=== PATIENT | female | born 1935 | race African-American/Black ===

== ENCOUNTER 2020-01-03 18:21 | Inpatient (IN) | payer MEDICARE, MEDICAID ==
[~2020-01-03] VITALS: Ht 154.9 cm; Wt 62.6 kg
[~2020-01-03 18:21] MED LIST: BENZTROPINE MESY1 MG NG; BENZTROPINE MESY1 MG PO; CULTURELLE1 EACH ORAL; DEPAKENE L250 MG/5 M ORAL; DEPAKENE250 MG ORAL; FLAGYL500 MG ORAL; FLUCONAZOLE100 MG ORAL; HALDOL5 MG ORAL; HALOPERIDOL1 MG ORAL; HYDROCODON-ACE1 EA16 ORAL
[2020-01-03 18:30] VITALS: BP 131/71
[2020-01-03] MEDS ORDERED: Haloperidol 5mg/ml Inj IM ONE (18:45)
[2020-01-03] MEDS ORDERED: ZYPREXA2.5 MG ORAL (18:58)
[2020-01-03] MEDS ORDERED: DULCOLAX10 MG RC (18:58)
[2020-01-03] MEDS ORDERED: COLACE100 MG ORAL (18:58)
[2020-01-03] MEDS ORDERED: REGLAN10 MG ORAL (18:58)
[2020-01-03] MEDS ORDERED: OMEPRAZOLE20 M3 ORAL (18:58)
[2020-01-03] MEDS ORDERED: FUROSEMIDE40 MG ORAL (18:58)
[2020-01-03] MEDS ORDERED: LOPERAMIDE2 M1 PO (18:58)
[2020-01-03] MEDS ORDERED: EPOGEN20000 UNI1 SUBQ (18:58)
[2020-01-03] MEDS ORDERED: TYLENOL325 M1 PO (18:58)
[2020-01-03 19:05] LABS: BASOPHILS % (AUTO) 1.2 % (0.0-2.0); HEMATOCRIT 34.6 % (37.0-47.0); HEMOGLOBIN 10.1 G/DL (12.0-16.0); LYMPHOCYTES % (AUTO) 11.8 % (20.0-45.0); MEAN CORPUSCULAR VOLUME 95 FL (80-99); MONOCYTES % (AUTO) 8.2 % (1.0-10.0); NEUTROPHILS % (AUTO) 77.8 % (45.0-75.0); PLATELET COUNT 177 K/UL (150-450); RED BLOOD COUNT 3.64 M/UL (4.20-5.40); RED CELL DISTRIBUTION WIDTH 16.2 % (11.6-14.8); WHITE BLOOD COUNT 9.1 K/UL (4.8-10.8)
[2020-01-03 19:10] VITALS: BP 140/81
[2020-01-03 19:15] LABS: ANION GAP 16 mmol/L (5-15); BLOOD UREA NITROGEN 72 mg/dL (7-18); CALCIUM 10.1 MG/DL (8.5-10.1); CARBON DIOXIDE 21 MMOL/L (21-32); CHLORIDE 109 MMOL/L (98-107); CREATININE 5.9 MG/DL (0.55-1.30); POTASSIUM 4.7 MMOL/L (3.5-5.1); SODIUM 146 MMOL/L (136-145)
[2020-01-03 19:19] LABS: ALANINE AMINOTRANSFERASE 10 U/L (12-78); ALBUMIN 4.4 G/DL (3.4-5.0); ALKALINE PHOSPHATASE 110 U/L (46-116); ASPARTATE AMINO TRANSFERASE 20 U/L (15-37); BILIRUBIN,TOTAL 0.4 MG/DL (0.2-1.0)
[2020-01-03 19:43] LABS: BILIRUBIN, URINE NEGATIVE (NEGATIVE); COLOR,URINE PALE YELLOW; GLUCOSE, URINE (UA) NEGATIVE (NEGATIVE); KETONES,URINE 1+ (NEGATIVE); LEUKOCYTE ESTERASE ,URINE 3+ (NEGATIVE); NITRITE,URINE NEGATIVE (NEGATIVE); PH,URINE 8 (4.5-8.0); PROTEIN,URINE 3+ (NEGATIVE); UROBILINOGEN,URINE NORMAL MG/DL (0.0-1.0)
[2020-01-03 20:00] LABS: APPEARANCE,URINE CLOUDY
[2020-01-03 20:30] VITALS: BP 135/85
--- NOTE | 2020-01-03 21:06 | Emergency Room Report ---
History of Present Illness General Chief Complaint: Behavioral Complaint Source: Medical Record, EMS Present Illness HPI 84-year-old female presents the ED for evaluation. [facility] History of psych. Patient has been more agitated and combative than usual. Refusing to take her medications. On arrival patient screaming and yelling. Cursing. No reported fevers or chills. No signs of distress. No other aggravating relieving factors. No other associated symptoms Allergies: Coded Allergies: No Known Allergies (Unverified , 05/11/15) COVID-19 Screening Contact w/high risk pt: No Experienced COVID-19 symptoms?: No COVID-19 Testing performed INSURANCE AND FINANCIAL SERVICES AGENT: No Patient History Past Medical History: psych hx, renal disease, other - MS Pertinent Family History: none Social History: Denies: smoking, alcohol use, drug use Now: No Immunizations: UTD Reviewed Nursing Documentation: PMH: Agreed; PSxH: Agreed Nursing Documentation-PMH Past Medical History: No History, Except For Hx Cardiac Problems: No - OSTEOPOROSIS Hx Gastrointestinal Problems: Yes - KIDNEY FAILURE Hx Neurological Problems: Yes - MS weakness Hx Seizures: Yes Review of Systems All Other Systems: negative except mentioned in HPI Physical Exam Vital Signs Date Time Temp Pulse Resp B/P (MAP) Pulse Ox O2 Delivery O2 Flow Rate FiO2 01/03/20 18:23 111 18 133/63 (86) 01/03/20 18:30 97.0 98 Room Air Sp02 EP Interpretation: reviewed, normal General Appearance: alert, GCS 15, non-toxic, other - agitated Head: normocephalic, atraumatic Eyes: bilateral eye normal inspection, bilateral eye PERRL ENT: hearing grossly normal, normal pharynx, no angioedema, normal voice Neck: full range of motion, supple/symm/no masses Respiratory: chest non-tender, lungs clear, normal breath sounds, speaking full sentences Cardiovascular #1: regular rate, rhythm, no edema Cardiovascular #2: 2+ carotid (R), 2+ carotid (L), 2+ radial (R), 2+ radial (L) , 2+ dorsalis pedis (R), 2+ dorsalis pedis (L) Gastrointestinal: normal bowel sounds, non tender, soft, non-distended, no guarding, no rebound Rectal: deferred Genitourinary: normal inspection, no CVA tenderness Musculoskeletal: back normal, normal range of motion, gait/station normal, non- tender Neurologic: alert, motor strength/tone normal, oriented x3, sensory intact, responsive, speech normal Psychiatric: anxious, other - agitated Reflexes: 3+ bicep (R), 3+ bicep (L), 3+ tricep (R), 3+ tricep (L), 3+ knee (R) , 3+ knee (L) Skin: other - see nursing notes Lymphatic: no adenopathy Medical Decision Making Diagnostic Impression: Primary Impression: Acute encephalopathy Additional Impressions: CKD (chronic kidney disease) Qualified Codes: N18.9 - Chronic kidney disease, unspecified Malnutrition Qualified Codes: E46 - Unspecified protein-calorie malnutrition UTI (urinary tract infection) ER Course Hospital Course 84-year-old female presents with agitation and combative behavior. Refusing to take her psych meds Differential diagnoses include: UTI, sepsis, dehydration, psychosis, failure to thrive Clinical course Patient placed on stretcher. On director cardiac with stable vitals. After initial history and physical, I ordered labs, IV fluids, UA She required Haldol for agitation Labs -no leukocytosis, hemoglobin/hematocrit stable, sodium 146, BUN/creatinine 72/5.9, UTI given abx. given IVFs. Dr Pearl will consult. Case discussed with Dr Martins and they agreed to admit patient to their service for further care and support I feel this is a highly complex case requiring extensive working including EKG/ Rhythm strip, Xray/CT/US, Blood/urine lab work, repeat exams while in ED, and administration of strong opiates/narcotics for pain control, admission to hospital or close patient follow up. Diagnosis - acute encephalopathy, CKD, malnutritino, UTI Patient admitted to telemetry in serious condition Laboratory Tests Test 01/03/20 18:20 01/03/20 18:40 Urine Color Pale yellow Urine Appearance Cloudy Urine pH 8 (4.5-8.0) Urine Specific [place] 1.010 (1.005-1.035) Urine Protein 3+ (NEGATIVE) H Urine Glucose (UA) Negative (NEGATIVE) Urine Ketones 1+ (NEGATIVE) H Urine Blood 3+ (NEGATIVE) H Urine Nitrite Negative (NEGATIVE) Urine Bilirubin Negative (NEGATIVE) Urine Urobilinogen Normal MG/DL (0.0-1.0) Urine Leukocyte Esterase 3+ (NEGATIVE) H Urine RBC Tntc /HPF (0 - 2) H Urine WBC 20-30 /HPF (0 - 2) H Urine Squamous Epithelial Cells Occasional /LPF Urine Amorphous Sediment Moderate /LPF (NONE) H Urine Bacteria Many /HPF (NONE) H Urine Opiates Screen Negative (NEGATIVE) Urine Barbiturates Screen Negative (NEGATIVE) Phencyclidine (PCP) Screen Negative (NEGATIVE) Urine Amphetamines Screen Negative (NEGATIVE) Urine Benzodiazepines Screen Negative (NEGATIVE) Urine Cocaine Screen Negative (NEGATIVE) Urine Marijuana (THC) Screen Negative (NEGATIVE) White Blood Count 9.1 K/UL (4.8-10.8) Red Blood Count 3.64 M/UL (4.20-5.40) L Hemoglobin 10.1 G/DL (12.0-16.0) L Hematocrit 34.6 % (37.0-47.0) L Mean Corpuscular Volume 95 FL (80-99) Mean Corpuscular Hemoglobin 27.8 PG (27.0-31.0) Mean Corpuscular Hemoglobin Concent 29.2 G/DL (32.0-36.0) L Red Cell Distribution Width 16.2 % (11.6-14.8) H Platelet Count 177 K/UL (150-450) Mean Platelet Volume 8.0 FL (6.5-10.1) Neutrophils (%) (Auto) 77.8 % (45.0-75.0) H Lymphocytes (%) (Auto) 11.8 % (20.0-45.0) L Monocytes (%) (Auto) 8.2 % (1.0-10.0) Eosinophils (%) (Auto) 1.0 % (0.0-3.0) Basophils (%) (Auto) 1.2 % (0.0-2.0) Sodium Level 146 MMOL/L (136-145) H Potassium Level 4.7 MMOL/L (3.5-5.1) Chloride Level 109 MMOL/L (98-107) H Carbon Dioxide Level 21 MMOL/L (21-32) Anion Gap 16 mmol/L (5-15) H Blood Urea Nitrogen 72 mg/dL (7-18) H Creatinine 5.9 MG/DL (0.55-1.30) H Estimat Glomerular Filtration Rate 8.2 mL/min (>60) Glucose Level 64 MG/DL (74-106) L Calcium Level 10.1 MG/DL (8.5-10.1) Total Bilirubin 0.4 MG/DL (0.2-1.0) Aspartate Amino Transf (AST/SGOT) 20 U/L (15-37) Alanine Aminotransferase (ALT/SGPT) 10 U/L (12-78) L Alkaline Phosphatase 110 U/L (46-116) Total Protein 8.8 G/DL (6.4-8.2) H Albumin 4.4 G/DL (3.4-5.0) Globulin 4.4 g/dL Albumin/Globulin Ratio 1.0 (1.0-2.7) Salicylates Level 1.4 ug/mL (2.8-20) L Acetaminophen Level < 2 MCG/ML (10-30) L Serum Alcohol < 3 mg/dL Last Vital Signs Date Time Temp Pulse Resp B/P (MAP) Pulse Ox O2 Delivery O2 Flow Rate FiO2 01/03/20 19:10 97.2 93 18 140/81 97 Room Air Status: improved Disposition: ADMITTED INPATIENT Condition: Critical Referrals: NON PHYSICIAN (PCP) Florentino France MD Jan 03, 2020 21:06
[2020-01-03] MEDS ORDERED: cefTRIAXone 1 GM in D5W 55 ML IVPB ONE (21:15)
[2020-01-04] VITALS: BP 111/31
[2020-01-04 04:00] VITALS: BP 133/69
[2020-01-04 07:35] LABS: BASOPHILS % (AUTO) 0.5 % (0.0-2.0); EOSINOPHILS % (AUTO) 0.9 % (0.0-3.0); HEMATOCRIT 32.3 % (37.0-47.0); HEMOGLOBIN 9.2 G/DL (12.0-16.0); MEAN CORPUSCULAR VOLUME 96 FL (80-99); MONOCYTES % (AUTO) 7.9 % (1.0-10.0); NEUTROPHILS % (AUTO) 75.6 % (45.0-75.0); PLATELET COUNT 171 K/UL (150-450); RED BLOOD COUNT 3.38 M/UL (4.20-5.40); RED CELL DISTRIBUTION WIDTH 15.9 % (11.6-14.8); WHITE BLOOD COUNT 9.6 K/UL (4.8-10.8)
[2020-01-04 07:55] LABS: ANION GAP 15 mmol/L (5-15); BLOOD UREA NITROGEN 72 mg/dL (7-18); CALCIUM 9.8 MG/DL (8.5-10.1); CARBON DIOXIDE 21 MMOL/L (21-32); CHLORIDE 112 MMOL/L (98-107); CREATININE 5.8 MG/DL (0.55-1.30); POTASSIUM 4.6 MMOL/L (3.5-5.1); SODIUM 148 MMOL/L (136-145)
[2020-01-04] MEDS: Docusate 100mg cap ORAL SCH (09:00)
[2020-01-04] MEDS: Benztropine 1mg tab ORAL SCH ×2 (09:00→17:30)
[2020-01-04] MEDS ORDERED: Valproic Acid 250mg/5ml Liquid ORAL SCH (09:00)
[2020-01-04] MEDS ORDERED: Benztropine 1mg tab NG SCH (09:00)
[2020-01-04] MEDS: HYDROcodone/Acetamin 7.5/325 tab ORAL SCH ×2 (09:00→17:31)
[2020-01-04] MEDS: Lactobacillus-GG tablet ORAL SCH ×3 (09:00→17:30)
[2020-01-04] MEDS ORDERED: Furosemide 40mg tab ORAL SCH (09:00)
[2020-01-04] MEDS: Enoxaparin 30mg Inj SUBQ SCH (10:00)
[2020-01-04] MEDS: D5 1/2NS 1,000 ML IV SCH (10:41)
--- NOTE | 2020-01-04 11:20 | History & Physical ---
History of Present Illness General Reason for Hospitalization: Behavioral Complaint Present Illness Allergies: Coded Allergies: No Known Allergies (Unverified , 05/11/15) COVID-19 Screening Contact w/high risk pt: No Experienced COVID-19 symptoms?: No Medication History Scheduled Acetaminophen (Tylenol), 500 MG PO PRN, (Reported) Benztropine Mesylate* (Benztropine Mesylate*), 1 MG PO TWICE A DAY, (Reported) Benztropine Mesylate* (Benztropine Mesylate*), 1 MG NG TWICE A DAY Docusate Sodium* (Colace*), 100 MG ORAL DAILY, (Reported) Epoetin Omid (Epogen), 6,000 UNIT SUBQ THREE TIMES A WEEK, (Reported) Fluconazole (Fluconazole), 100 MG ORAL DAILY Furosemide* (Lasix*), 40 MG ORAL DAILY, (Reported) Haloperidol (Haloperidol), 5 MG ORAL QHS Haloperidol* (Haldol*), 5 MG ORAL TWICE A DAY, (Reported) Hydrocodone/Acetaminophen 7.5-325* (Hydrocodon-Acetaminoph 7.5-325*), 1 TAB ORAL TWICE A DAY, (Reported) Lactobacillus Rhamnosus Gg* (Culturelle*), 1 TAB ORAL THREE TIMES A DAY Loperamide Hcl (Loperamide), 2 MG PO Q4HR, (Reported) Metoclopramide Hcl* (Reglan*), 10 MG ORAL BEDTIME, (Reported) Metronidazole* (Flagyl*), 500 MG ORAL EVERY 8 HOURS Olanzapine* (Zyprexa*), 2.5 MG ORAL BEDTIME, (Reported) Omeprazole (Omeprazole), 20 MG ORAL DAILY, (Reported) Valproic Acid (Depakene), 250 MG ORAL TWICE A DAY, (Reported) Valproic Acid (Valproic Acid), 250 MG ORAL TWICE A DAY Miscellaneous Medications Bisacodyl (Dulcolax), 10 MG RC, (Reported) Patient History Healthcare decision maker Resuscitation status Advanced Directive on File Review of Systems Review of Symptoms General ROS: no weight loss or fever Psychological ROS: no depression or mood changes, no memory loss Ophthalmic ROS: no visual changes or eye irritation ENT ROS: no nasal congestion, hearing loss, dizziness Allergy and Immunology ROS: no allergic symptoms or urticaria Hematological and Lymphatic ROS: no swollen glands, unusual bleeding or bruising Endocrine ROS: no polyuria, polydipsia, weight changes, temperature intolerance Respiratory ROS: no cough, shortness of breath, or wheezing Cardiovascular ROS: no chest pain or dyspnea on exertion Gastrointestinal ROS: denies abdominal pain, bright red blood in stool. Musculoskeletal ROS: no myalgias or arthralgias Neurological ROS: no TIA or stroke symptoms Dermatological ROS: no new or changing skin lesions, rashes or pruritis Physical Exam Physical Exam General appearance: alert, cooperative, no distress, appears stated age Head: Normocephalic, without obvious abnormality, atraumatic Eyes: conjunctivae/corneas clear. PERRL, EOM's intact. Fundi benign Throat: Lips, mucosa, and tongue normal. Teeth and gums normal Neck: supple, symmetrical, trachea midline, no adenopathy, thyroid: not enlarged, symmetric, no tenderness/mass/nodules, no carotid bruit and no JVD Lungs: clear to auscultation bilaterally Heart: regular rate and rhythm, S1, S2 normal, no murmur, click, rub or gallop Abdomen: soft, non-tender. Bowel sounds normal. No masses, no organomegaly Extremities: extremities normal, atraumatic, no cyanosis or edema Pulses: 2+ and symmetric Skin: Skin color, texture, turgor normal. No rashes or lesions Neurologic: Grossly normal Last 24 Hour Vital Signs Date Time Temp Pulse Resp B/P (MAP) Pulse Ox O2 Delivery O2 Flow Rate FiO2 01/04/20 07:29 84 01/04/20 04:00 96 01/04/20 04:00 97.9 96 20 133/69 (90) 95 01/04/20 00:00 49 01/04/20 00:00 97.9 49 15 111/31 (57) 99 01/03/20 23:27 Room Air 01/03/20 21:47 97.0 77 20 131/78 97 Room Air 01/03/20 20:30 97.2 88 16 135/85 96 Room Air 01/03/20 19:10 97.2 93 18 140/81 97 Room Air 01/03/20 18:30 97.0 94 18 131/71 98 Room Air 01/03/20 18:30 98 18 01/03/20 18:23 111 18 133/63 (86) Intake and Output 01/03/20 01/04/20 19:00 07:00 Intake Total 100 ml Output Total 200 ml Balance -100 ml Intake Oral 100 ml Output Urine Total 200 ml Laboratory Tests Test 01/03/20 18:20 01/03/20 18:40 01/04/20 05:43 01/04/20 07:08 Urine Color Pale yellow Urine Appearance Cloudy Urine pH 8 (4.5-8.0) Urine Specific [place] 1.010 (1.005-1.035) Urine Protein 3+ (NEGATIVE) H Urine Glucose (UA) Negative (NEGATIVE) Urine Ketones 1+ (NEGATIVE) H Urine Blood 3+ (NEGATIVE) H Urine Nitrite Negative (NEGATIVE) Urine Bilirubin Negative (NEGATIVE) Urine Urobilinogen Normal MG/DL (0.0-1.0) Urine Leukocyte Esterase 3+ (NEGATIVE) H Urine RBC Tntc /HPF (0 - 2) H Urine WBC 20-30 /HPF (0 - 2) H Urine Squamous Epithelial Cells Occasional /LPF Urine Amorphous Sediment Moderate /LPF (NONE) H Urine Bacteria Many /HPF (NONE) H Urine Opiates Screen Negative (NEGATIVE) Urine Barbiturates Screen Negative (NEGATIVE) Phencyclidine (PCP) Screen Negative (NEGATIVE) Urine Amphetamines Screen Negative (NEGATIVE) Urine Benzodiazepines Screen Negative (NEGATIVE) Urine Cocaine Screen Negative (NEGATIVE) Urine Marijuana (THC) Screen Negative (NEGATIVE) White Blood Count 9.1 K/UL (4.8-10.8) 9.6 K/UL (4.8-10.8) Red Blood Count 3.64 M/UL (4.20-5.40) L 3.38 M/UL (4.20-5.40) L Hemoglobin 10.1 G/DL (12.0-16.0) L 9.2 G/DL (12.0-16.0) L Hematocrit 34.6 % (37.0-47.0) L 32.3 % (37.0-47.0) L Mean Corpuscular Volume 95 FL (80-99) 96 FL (80-99) Mean Corpuscular Hemoglobin 27.8 PG (27.0-31.0) 27.1 PG (27.0-31.0) Mean Corpuscular Hemoglobin Concent 29.2 G/DL (32.0-36.0) L 28.4 G/DL (32.0-36.0) L Red Cell Distribution Width 16.2 % (11.6-14.8) H 15.9 % (11.6-14.8) H Platelet Count 177 K/UL (150-450) 171 K/UL (150-450) Mean Platelet Volume 8.0 FL (6.5-10.1) 7.6 FL (6.5-10.1) Neutrophils (%) (Auto) 77.8 % (45.0-75.0) H 75.6 % (45.0-75.0) H Lymphocytes (%) (Auto) 11.8 % (20.0-45.0) L 15.0 % (20.0-45.0) L Monocytes (%) (Auto) 8.2 % (1.0-10.0) 7.9 % (1.0-10.0) Eosinophils (%) (Auto) 1.0 % (0.0-3.0) 0.9 % (0.0-3.0) Basophils (%) (Auto) 1.2 % (0.0-2.0) 0.5 % (0.0-2.0) Sodium Level 146 MMOL/L (136-145) H 148 MMOL/L (136-145) H Potassium Level 4.7 MMOL/L (3.5-5.1) 4.6 MMOL/L (3.5-5.1) Chloride Level 109 MMOL/L (98-107) H 112 MMOL/L (98-107) H Carbon Dioxide Level 21 MMOL/L (21-32) 21 MMOL/L (21-32) Anion Gap 16 mmol/L (5-15) H 15 mmol/L (5-15) Blood Urea Nitrogen 72 mg/dL (7-18) H 72 mg/dL (7-18) H Creatinine 5.9 MG/DL (0.55-1.30) H 5.8 MG/DL (0.55-1.30) H Estimat Glomerular Filtration Rate 8.2 mL/min (>60) 8.5 mL/min (>60) Glucose Level 64 MG/DL (74-106) L 48 MG/DL (74-106) L Calcium Level 10.1 MG/DL (8.5-10.1) 9.8 MG/DL (8.5-10.1) Total Bilirubin 0.4 MG/DL (0.2-1.0) Aspartate Amino Transf (AST/SGOT) 20 U/L (15-37) Alanine Aminotransferase (ALT/SGPT) 10 U/L (12-78) L Alkaline Phosphatase 110 U/L (46-116) Total Protein 8.8 G/DL (6.4-8.2) H Albumin 4.4 G/DL (3.4-5.0) Globulin 4.4 g/dL Albumin/Globulin Ratio 1.0 (1.0-2.7) Salicylates Level 1.4 ug/mL (2.8-20) L Acetaminophen Level < 2 MCG/ML (10-30) L Serum Alcohol < 3 mg/dL POC Whole Blood Glucose Pending Microbiology Date/Time Source Procedure Growth Status 01/03/20 18:20 Urine,Clean Catch Urine Culture - Preliminary Resulted 01/04/20 07:00 Rectum Received Height (Feet): 5 Height (Inches): 1.00 Weight (Pounds): 140 Medications Current Medications Medications (Trade) Dose Ordered Sig/Selene Route PRN Reason Start Time Stop Time Status Last Admin Dose Admin Acetaminophen/ Hydrocodone Bitart ([place] 7.5/325) 1 tab TWICE A DAY ORAL 01/04/20 09:00 01/11/20 08:59 Benztropine Mesylate (Cogentin) 1 mg TWICE A DAY ORAL 01/04/20 09:00 02/03/20 08:59 Bisacodyl (Dulcolax) 10 mg DAILY PRN RECTAL Constipation 01/03/20 23:45 04/02/20 23:44 Dextrose (Dextrose 50%) 25 ml Q30M PRN IV Hypoglycemia 01/04/20 07:00 04/03/20 06:59 Dextrose (Dextrose 50%) 50 ml Q30M PRN IV Hypoglycemia 01/04/20 07:00 04/03/20 06:59 Dextrose/Sodium Chloride 1,000 ml @ 50 mls/hr Q20H IV 01/04/20 10:30 02/03/20 10:29 01/04/20 10:41 Docusate Sodium (Colace) 100 mg DAILY ORAL 01/04/20 09:00 02/03/20 08:59 Enoxaparin Sodium (Lovenox) 30 mg DAILY SUBQ 01/04/20 10:00 04/03/20 09:59 Furosemide (Lasix) 40 mg DAILY ORAL 01/04/20 09:00 02/03/20 08:59 Haloperidol (Haldol) 5 mg QHS ORAL 01/04/20 21:00 02/18/20 20:59 Haloperidol (Haldol) 5 mg TWICE A DAY ORAL 01/04/20 09:00 02/18/20 08:59 Insulin Aspart (NovoLOG) BEFORE MEALS AND HS SUBQ 01/04/20 11:30 04/03/20 11:29 Lactobacillus Acidophilus (Culturelle) 1 tab THREE TIMES A DAY ORAL 01/04/20 09:00 04/03/20 08:59 Olanzapine (ZyPREXA) 2.5 mg BEDTIME ORAL 01/04/20 21:00 02/18/20 20:59 Valproic Acid (Depakene) 250 mg TWICE A DAY ORAL 01/04/20 09:00 02/18/20 08:59 Assessment/Plan Status Narrative Internal Med H&P Covering Dr. Bravo Martins DOS 01/04/2020 RFA: Agitation, refusing meds HPI 84-year-old female presents the ED for evaluation. Brought in by EMS from [facility] facility. History of psych. Patient has been more agitated and combative than usual. Refusing to take her medications. On arrival patient screaming and yelling. Cursing. No reported fevers or chills. No signs of distress. No other aggravating relieving factors. No other associated symptoms. I personally last saw her in December 2019, at [facility], she p/w similar behavior, overnight called for adm orderes, was ariana and needed restraints, psych consulted Coded Allergies: No Known Allergies (Unverified , 05/11/15) COVID-19 Screening Contact w/high risk pt: No Experienced COVID-19 symptoms?: No COVID-19 Testing performed GLOBAL CEO: No Patient History Past Medical History: psych hx, renal disease, other - MS Pertinent Family History: none Social History: Denies: smoking, alcohol use, drug use Now: No Immunizations: UTD Reviewed Nursing Documentation: PMH: Agreed; PSxH: Agreed Nursing Documentation-PM Past Medical History: No History, Except For Hx Cardiac Problems: No - OSTEOPOROSIS Hx Gastrointestinal Problems: Yes - KIDNEY FAILURE Hx Neurological Problems: Yes - MS weakness Hx Seizures: Yes Review of Systems All Other Systems: negative except mentioned in HPI Physical Exam: Vitals: reviewed General: NAD HEENT: nc, at Neck: supple Chest: clear breath sounds bilaterally Cardiovascular: RRR, no s3, s4 Abdomen: soft, nontender, nd Extremities: no cce, normal range of motion Neuro: alert and oriented LABORATORY DATA: 12/2019 sodium 153, potassium of 4.3, 111 of chloride, 28 of bicarb, BUN of 63, creatinine is 5.40, calcium of 10.7. BNP of 140, magnesium of 3.3 and phosphorus of 5. The patient's COVID IgG is positive. MEDS: Reviewed ASSESSMENT AND REC'S: #. Intermittent Noncompliance --> seen by psych for psychosis and dementia behavior/agitated --> Continue to encourage overall compliance especially with daily laboratory blood draws. --> Spoke to niece who is listed P.O.A on POLST form in chart she has refused for Hemodialysis and does not agree for HD --> have dw renal in prior and also psych #. End-stage renal disease. --> patient's P.O.A listed on POLST Form in chart: Eb Gould has REFUSED HEMODIALYSIS For Patient. #. Anemia of chronic kidney disease. --> monitor Epogen as needed #. Hypercalcemia. --> cont to monitor #. Hypertension. --> elevated refusing medications. --> sbp goal <140 --> hydralazine given prn iv #. Bradycardia --> ekg reviewed, labs noted --> atropine at bedside prn #. Diabetes. #. AFIB --> cards on board for further evaluation --> 12 lead ekg, trop level, tele cont to monitor The time the note was entered does not necessarily correspond to the time the patient was seen [facility] declaration INPATIENT level of care is warranted for this patient because patient is a 89 year old with who presents with suspicion of . I have a high level of concern because . Patient is at high risk for . Plan of care/treatment include . Patient care is expected to be greater than 2 midnights. OBSERVATION level of care is warranted for this patient. Patient is a 89 year old with who presents with . Patient will be admitted for 1 midnight, but if additional night(s) is/are necessary, patient will be converted to inpatient status for the entire hospitalization Disposition: Once the patient is stable to leave the hospital, I anticipate the patient will likely be discharged to the following environment: Estimated discharge date: I spent 70 minutes on this patient's case, and minutes was dedicated to counseling and/or care coordination. MIPS (Merit-based Incentive Payment System) Applicable CPT: 36439, 97365 CHECK ALL THAT ARE MET: Measure #5 (CHF): All ages. Prescribe JHONNY/ARB upon discharge for patients with left ventricular systolic dysfunction. If not, the reason is clearly documented in the medical chart. Measure #8 (CHF): All ages. Prescribe a beta angela upon discharge for patients with left ventricular systolic dysfunction. If not, the reason is clearly documented in the medical chart. Measure #47 Advance care plan or surrogate decision maker documented in the medical record. Measure #130 The provider has documented, updated, or reviewed the patients current medication list and has documented it in the patients note. Measure #374 (All): Send report to referring provider. Measure #407(Sepsis due to MSSA bacteremia): Age 18+ Patient treated with a beta-lactam antibiotic (Nafcillin, Oxacillin or Cefazolin) as definitive therapy. MEDICAL COMPLEXITY High complexity medical decision making (need 2/3 categories) Problem - need 4 points Acute/new problem with new plan for workup (4 points, 1 max) Acute/new problem without additional workup (3 points, 1 max) Unstable chronic problem actively being managed (2 point each, 2 max) Stable chronic problem actively being managed (1 point each, 2 max) Self-limited/transient process (constipation, muscle ache, etc) (1 point each , 2 max) Data - need 4 points Reviewed labs/imaging studies (1 points, 2 max) Independent review of imaging (EKG, xrays, etc) (2 points, 2 max) Discussed case with consult/other MD/RN (2 points, 2 max) High Risk - qualify if have one of the following: Severe exacerbation of acute problem, acute mental status change, IV narcotics , monitoring drug levels (vancomycin, INR, tacrolimus etc) Star Toth MD Jan 04, 2020 11:20
[2020-01-04] MEDS: NovoLOG Insulin Flexpen SUBQ SCH ×3 (11:30→21:00)
[2020-01-04 12:00] VITALS: BP 61/69
[2020-01-04 12:30] VITALS: BP 122/48
[2020-01-04 16:00] VITALS: BP 157/117
[2020-01-04 20:00] VITALS: BP 122/63
[2020-01-04] MEDS: OLANZapine 2.5mg tab ORAL SCH ×2 (21:00→21:19)
--- NOTE | 2020-01-04 21:00 | Consultation ---
DATE OF CONSULTATION: 01/04/2020 CONSULTING PHYSICIAN: Britney Pearl MD. HISTORY OF PRESENT ILLNESS: This is an 84-year-old female, who I am well familiar with, with a history of multiple medical issues including renal failure, schizophrenia and dementia, who has been admitted to the hospital for altered mental status. The patient is responding to internal stimuli, easily agitated, has abnormal labs. The patient is in bilateral soft restraints, is easily agitated. PAST PSYCHIATRIC HISTORY: Schizophrenia, dementia, and auditory hallucinations. No suicide attempt. PAST MEDICAL HISTORY: Renal failure and hypertension. ALLERGIES: No known drug allergies. SUBSTANCE ABUSE HISTORY: No known history of illicit drug use or alcohol. MENTAL STATUS EXAMINATION: Alert and oriented to times, self, and place. Mood is agitated. Affect is flat. Thought process is disorganized. Thought content, positive for auditory hallucination. Cognition is impaired. Insight and judgment is impaired. ASSESSMENT: AXIS I: 1. Dementia with behavioral disturbance. 2. Schizophrenia. AXIS II: Deferred. AXIS III: 1. Abnormal labs. 2. Hypertension. 3. Diabetes mellitus. AXIS IV: Low. AXIS V: 20. PLAN: 1. We will start the patient on Seroquel, DC the Haldol. 2. Increase the Depakote. 3. Continue bilateral soft restraints. Britney Pearl M.D. DR: Hunter JOB#: [id number] CC:
[2020-01-05] VITALS: BP 133/80
[2020-01-05 04:00] VITALS: BP 157/74
[2020-01-05] MEDS: Valproate Sodium INJ 250 MG in D5W 55 ML IVPB SCH ×6 (05:22→23:32)
[2020-01-05] MEDS: NovoLOG Insulin Flexpen SUBQ SCH ×4 (06:30→21:00)
[2020-01-05] MEDS: D5 1/2NS 1,000 ML IV SCH ×2 (06:31→09:38)
[2020-01-05 08:00] VITALS: BP 151/52
--- NOTE | 2020-01-05 08:01 | Hematology/Onc Progress Note ---
Assessment/Plan Assessment/Plan ASSESSMENT AND REC'S: #. End-stage renal disease. --> patient's P.O.A listed on POLST Form in chart: Eb Gould has REFUSED HEMODIALYSIS For Patient. --> hgb 10-->9.2 #. Intermittent Noncompliance --> seen by psych for psychosis and dementia behavior/agitated --> Continue to encourage overall compliance especially with daily laboratory blood draws. --> Spoke to niece who is listed P.O.A on POLST form in chart she has refused for Hemodialysis and does not agree for HD --> have dw renal in prior and also psych #. Anemia of chronic kidney disease. --> monitor Epogen as needed #. Hypercalcemia. --> cont to monitor #. Hypertension. --> elevated refusing medications. --> sbp goal <140 --> hydralazine given prn iv #. Bradycardia --> ekg reviewed, labs noted --> atropine at bedside prn #. Diabetes. #. AFIB --> cards as needed eval #. Dvt ppx lovenox sq The time the note was entered does not necessarily correspond to the time the patient was seen Subjective Constitutional: Denies: no symptoms, chills, fever, malaise, weakness, other Cardiovascular: Denies: no symptoms, chest pain, edema, irregular heart rate, lightheadedness, palpitations, syncope, other Respiratory: Denies: no symptoms, cough, shortness of breath, SOB with excertion, SOB at rest, sputum, wheezing, other Gastrointestinal/Abdominal: Denies: no symptoms, abdomen distended, abdominal pain, black stools, tarry stools, blood in stool, constipated, diarrhea, difficulty swallowing, nausea, poor appetite, poor fluid intake, rectal bleeding , vomiting, other Genitourinary: Denies: no symptoms, burning, discharge, frequency, flank pain, hematuria, incontinence, pain, urgency, other Endocrine: Denies: no symptoms, excessive sweating, flushing, intolerance to cold, intolerance to heat, increased hunger, increased thirst, increased urine, unexplained weight gain, unexplained weight loss, other Allergies: Coded Allergies: No Known Allergies (Unverified , 05/11/15) Subjective 8/5 on soft restraints, with fluids, no night sweats, meds converted to iv Objective Objective Current Medications Medications (Trade) Dose Ordered Sig/Selene Route PRN Reason Start Time Stop Time Status Last Admin Dose Admin Acetaminophen/ Hydrocodone Bitart ([place] 7.5/325) 1 tab TWICE A DAY ORAL 01/04/20 09:00 01/11/20 08:59 Amlodipine Besylate (Norvasc) 5 mg DAILY ORAL 01/04/20 21:00 02/03/20 20:59 Benztropine Mesylate (Cogentin) 1 mg TWICE A DAY ORAL 01/04/20 09:00 02/03/20 08:59 Bisacodyl (Dulcolax) 10 mg DAILY PRN RECTAL Constipation 01/03/20 23:45 04/02/20 23:44 Dextrose (Dextrose 50%) 25 ml Q30M PRN IV Hypoglycemia 01/04/20 07:00 04/03/20 06:59 Dextrose (Dextrose 50%) 50 ml Q30M PRN IV Hypoglycemia 01/04/20 07:00 04/03/20 06:59 Dextrose/Sodium Chloride 1,000 ml @ 50 mls/hr Q20H IV 01/04/20 10:30 02/03/20 10:29 01/05/20 06:31 Docusate Sodium (Colace) 100 mg DAILY ORAL 01/04/20 09:00 02/03/20 08:59 Enoxaparin Sodium (Lovenox) 30 mg DAILY SUBQ 01/04/20 10:00 04/03/20 09:59 Furosemide (Lasix) 40 mg DAILY IV 01/05/20 09:00 02/04/20 08:59 Hydralazine HCl (Apresoline) 10 mg Q6H PRN IV For High Blood Pressure 01/04/20 16:58 04/03/20 16:57 01/05/20 07:14 Insulin Aspart (NovoLOG) BEFORE MEALS AND HS SUBQ 01/04/20 11:30 04/03/20 11:29 Lactobacillus Acidophilus (Culturelle) 1 tab THREE TIMES A DAY ORAL 01/04/20 09:00 04/03/20 08:59 Olanzapine (ZyPREXA) 2.5 mg BEDTIME ORAL 01/04/20 21:00 02/18/20 20:59 Quetiapine Fumarate (SEROqueL) 50 mg Q12HR ORAL 01/04/20 14:25 02/18/20 14:24 Valproate Sodium 250 mg/Dextrose 57.5 ml @ 57.5 mls/hr Q6HR IVPB 01/05/20 00:00 02/19/20 00:00 01/05/20 05:22 Last 24 Hour Vital Signs Date Time Temp Pulse Resp B/P (MAP) Pulse Ox O2 Delivery O2 Flow Rate FiO2 01/05/20 07:14 151/52 01/05/20 04:00 85 01/05/20 04:00 98.1 85 19 157/74 (101) 95 01/05/20 00:00 98 01/05/20 00:00 97.7 98 20 133/80 (97) 95 01/04/20 21:00 Room Air 01/04/20 21:00 98 122/63 01/04/20 20:00 96 01/04/20 20:00 97.7 98 22 122/63 (82) 99 01/04/20 17:10 157/117 01/04/20 16:00 84 01/04/20 16:00 98.1 62 20 157/117 (130) 97 01/04/20 12:30 82 122/48 (72) 01/04/20 12:00 85 01/04/20 12:00 97.9 63 20 61/69 (66) 95 01/04/20 09:00 Room Air 01/04/20 07:29 84 01/04/20 04:00 96 01/04/20 04:00 97.9 96 20 133/69 (90) 95 01/04/20 00:00 49 01/04/20 00:00 97.9 49 15 111/31 (57) 99 01/03/20 23:27 Room Air 01/03/20 21:47 97.0 77 20 131/78 97 Room Air 01/03/20 20:30 97.2 88 16 135/85 96 Room Air 01/03/20 19:10 97.2 93 18 140/81 97 Room Air 01/03/20 18:30 97.0 94 18 131/71 98 Room Air 01/03/20 18:30 98 18 01/03/20 18:23 111 18 133/63 (86) Intake and Output 01/04/20 01/05/20 19:00 07:00 Output Total 800 ml Balance -800 ml Output Urine Total 800 ml # Voids 3 # Bowel Movements 1 Labs Test 01/03/20 18:20 01/03/20 18:40 01/04/20 05:43 01/04/20 07:08 Urine Color Pale yellow Urine Appearance Cloudy Urine pH 8 (4.5-8.0) Urine Specific [place] 1.010 (1.005-1.035) Urine Protein 3+ (NEGATIVE) Urine Glucose (UA) Negative (NEGATIVE) Urine Ketones 1+ (NEGATIVE) Urine Blood 3+ (NEGATIVE) Urine Nitrite Negative (NEGATIVE) Urine Bilirubin Negative (NEGATIVE) Urine Urobilinogen Normal MG/DL (0.0-1.0) Urine Leukocyte Esterase 3+ (NEGATIVE) Urine RBC Tntc /HPF (0 - 2) Urine WBC 20-30 /HPF (0 - 2) Urine Squamous Epithelial Cells Occasional /LPF Urine Amorphous Sediment Moderate /LPF (NONE) Urine Bacteria Many /HPF (NONE) Urine Opiates Screen Negative (NEGATIVE) Urine Barbiturates Screen Negative (NEGATIVE) Phencyclidine (PCP) Screen Negative (NEGATIVE) Urine Amphetamines Screen Negative (NEGATIVE) Urine Benzodiazepines Screen Negative (NEGATIVE) Urine Cocaine Screen Negative (NEGATIVE) Urine Marijuana (THC) Screen Negative (NEGATIVE) White Blood Count 9.1 K/UL (4.8-10.8) 9.6 K/UL (4.8-10.8) Red Blood Count 3.64 M/UL (4.20-5.40) 3.38 M/UL (4.20-5.40) Hemoglobin 10.1 G/DL (12.0-16.0) 9.2 G/DL (12.0-16.0) Hematocrit 34.6 % (37.0-47.0) 32.3 % (37.0-47.0) Mean Corpuscular Volume 95 FL (80-99) 96 FL (80-99) Mean Corpuscular Hemoglobin 27.8 PG (27.0-31.0) 27.1 PG (27.0-31.0) Mean Corpuscular Hemoglobin Concent 29.2 G/DL (32.0-36.0) 28.4 G/DL (32.0-36.0) Red Cell Distribution Width 16.2 % (11.6-14.8) 15.9 % (11.6-14.8) Platelet Count 177 K/UL (150-450) 171 K/UL (150-450) Mean Platelet Volume 8.0 FL (6.5-10.1) 7.6 FL (6.5-10.1) Neutrophils (%) (Auto) 77.8 % (45.0-75.0) 75.6 % (45.0-75.0) Lymphocytes (%) (Auto) 11.8 % (20.0-45.0) 15.0 % (20.0-45.0) Monocytes (%) (Auto) 8.2 % (1.0-10.0) 7.9 % (1.0-10.0) Eosinophils (%) (Auto) 1.0 % (0.0-3.0) 0.9 % (0.0-3.0) Basophils (%) (Auto) 1.2 % (0.0-2.0) 0.5 % (0.0-2.0) Sodium Level 146 MMOL/L (136-145) 148 MMOL/L (136-145) Potassium Level 4.7 MMOL/L (3.5-5.1) 4.6 MMOL/L (3.5-5.1) Chloride Level 109 MMOL/L (98-107) 112 MMOL/L (98-107) Carbon Dioxide Level 21 MMOL/L (21-32) 21 MMOL/L (21-32) Anion Gap 16 mmol/L (5-15) 15 mmol/L (5-15) Blood Urea Nitrogen 72 mg/dL (7-18) 72 mg/dL (7-18) Creatinine 5.9 MG/DL (0.55-1.30) 5.8 MG/DL (0.55-1.30) Estimat Glomerular Filtration Rate 8.2 mL/min (>60) 8.5 mL/min (>60) Glucose Level 64 MG/DL (74-106) 48 MG/DL (74-106) Calcium Level 10.1 MG/DL (8.5-10.1) 9.8 MG/DL (8.5-10.1) Total Bilirubin 0.4 MG/DL (0.2-1.0) Aspartate Amino Transf (AST/SGOT) 20 U/L (15-37) Alanine Aminotransferase (ALT/SGPT) 10 U/L (12-78) Alkaline Phosphatase 110 U/L (46-116) Total Protein 8.8 G/DL (6.4-8.2) Albumin 4.4 G/DL (3.4-5.0) Globulin 4.4 g/dL Albumin/Globulin Ratio 1.0 (1.0-2.7) Salicylates Level 1.4 ug/mL (2.8-20) Acetaminophen Level < 2 MCG/ML (10-30) Serum Alcohol < 3 mg/dL Test 01/05/20 05:49 POC Whole Blood Glucose 82 MG/DL (74-106) Height (Feet): 5 Height (Inches): 1.00 Weight (Pounds): 138 Objective Physical Exam: Vitals: reviewed General: NAD HEENT: nc, at Neck: supple Chest: clear breath sounds bilaterally Cardiovascular: RRR, no s3, s4 Abdomen: soft, nontender, nd Extremities: no cce, normal range of motion Neuro: alert and oriented Star Toth MD Jan 05, 2020 08:01
[2020-01-05] MEDS: HYDROcodone/Acetamin 7.5/325 tab ORAL SCH ×2 (09:00→17:11)
[2020-01-05] MEDS: Docusate 100mg cap ORAL SCH (09:00)
[2020-01-05] MEDS: Lactobacillus-GG tablet ORAL SCH ×3 (09:00→17:11)
[2020-01-05] MEDS: Enoxaparin 30mg Inj SUBQ SCH (09:00)
[2020-01-05] MEDS: Benztropine 1mg tab ORAL SCH ×3 (09:00→17:11)
--- NOTE | 2020-01-05 09:16 | General Progress Note ---
Assessment/Plan Problem List: (1) Anemia ICD Codes: D64.9 - Anemia, unspecified SNOMED: 620282987 (2) CKD (chronic kidney disease) ICD Codes: N18.9 - Chronic kidney disease, unspecified SNOMED: 966158896, [id number] Qualifiers: Qualified Codes: N18.9 - Chronic kidney disease, unspecified (3) UTI (urinary tract infection) ICD Codes: N39.0 - Urinary tract infection, site not specified SNOMED: 20328883 (4) Failure to thrive SNOMED: 00490106 Status: unchanged Assessment/Plan: pt diet abx cbc bmp am psyc f/u family refuse dialysis per psyc Subjective Constitutional: Reports: weakness Allergies: Coded Allergies: No Known Allergies (Unverified , 05/11/15) All Systems: reviewed and negative except above Subjective sleepy calm Objective Last 24 Hour Vital Signs Date Time Temp Pulse Resp B/P (MAP) Pulse Ox O2 Delivery O2 Flow Rate FiO2 01/05/20 08:02 Room Air 01/05/20 08:00 97.5 81 19 151/52 (85) 98 01/05/20 07:14 151/52 01/05/20 04:00 85 01/05/20 04:00 98.1 85 19 157/74 (101) 95 01/05/20 00:00 98 01/05/20 00:00 97.7 98 20 133/80 (97) 95 01/04/20 21:00 Room Air 01/04/20 21:00 98 122/63 01/04/20 20:00 96 01/04/20 20:00 97.7 98 22 122/63 (82) 99 01/04/20 17:10 157/117 01/04/20 16:00 84 01/04/20 16:00 98.1 62 20 157/117 (130) 97 01/04/20 12:30 82 122/48 (72) 01/04/20 12:00 85 01/04/20 12:00 97.9 63 20 61/69 (66) 95 Intake and Output 01/04/20 01/05/20 19:00 07:00 Output Total 800 ml Balance -800 ml Output Urine Total 800 ml # Voids 3 # Bowel Movements 1 Laboratory Tests 01/05/20 05:49: POC Whole Blood Glucose 82 Height (Feet): 5 Height (Inches): 1.00 Weight (Pounds): 138 General Appearance: lethargic EENT: normal ENT inspection Neck: normal alignment Cardiovascular: normal peripheral pulses, normal rate, regular rhythm Respiratory/Chest: chest wall non-tender, lungs clear, normal breath sounds Abdomen: normal bowel sounds, non tender, soft Extremities: normal inspection Edema: no edema noted Arm (L), no edema noted Arm (R), no edema noted Leg (L), no edema noted Leg (R), no edema noted Pedal (L), no edema noted Pedal (R), no edema noted Generalized Neurologic: motor weakness Skin: normal pigmentation, warm/dry Bravo Martins DO Jan 05, 2020 09:16
[2020-01-05 12:00] VITALS: BP 129/59
--- NOTE | 2020-01-05 12:36 | CDS Physician Query ---
Clarification is required for compliance, coding accuracy, and to reflect severity of illness for this patient Dear Dr. Bravo Martins Date: 01/05/2020 Rn Orthopaedics/CDS Name: Cari Mario Clinical Documentation states: HNP:84-year-old female presents the ED for evaluation. Brought in by EMS from long term facility. History of psych. Patient has been more agitated and combative than usual...she has refused for Hemodialysis and does not agree for HD ED note: Primary Impression: Acute encephalopathy Additional Impressions: CKD (chronic kidney disease) Labs on admit: Creatinine 5.9, BUN 72 Please indicate the nature and chronicity of the condition below: [] Metabolic Encephalopathy [] Toxic Encephalopathy [] Encephalopathy, Other [] Dementia with Delirium [] Posterior reversible encephalopathy syndrome [] Other: [] Not Applicable Present on Admission: [] Yes [] No [] Clinically Undetermined Physician signature Date Please also document in your Progress Notes and/or Discharge Summary and indicate if the condition was present on admission. MTDD
--- NOTE | 2020-01-05 13:13 | Consultation ---
History of Present Illness General Date patient seen: Jan 05, 2020 Chief Complaint: Behavioral Complaint Present Illness HPI 84 y/o F with hx of CKD, Dm2, osteoporosis, seizure disorder, schizophrenia, HTN , Dementia, SNF resident presented to ED on 01/02 with altered mental status, more agitated and combative than usual. No reported fevers or chills. Allergies: Coded Allergies: No Known Allergies (Unverified , 05/11/15) Medication History Scheduled Acetaminophen (Tylenol), 500 MG PO PRN, (Reported) Benztropine Mesylate* (Benztropine Mesylate*), 1 MG PO TWICE A DAY, (Reported) Benztropine Mesylate* (Benztropine Mesylate*), 1 MG NG TWICE A DAY Docusate Sodium* (Colace*), 100 MG ORAL DAILY, (Reported) Epoetin Omid (Epogen), 6,000 UNIT SUBQ THREE TIMES A WEEK, (Reported) Fluconazole (Fluconazole), 100 MG ORAL DAILY Furosemide* (Lasix*), 40 MG ORAL DAILY, (Reported) Haloperidol (Haloperidol), 5 MG ORAL QHS Haloperidol* (Haldol*), 5 MG ORAL TWICE A DAY, (Reported) Hydrocodone/Acetaminophen 7.5-325* (Hydrocodon-Acetaminoph 7.5-325*), 1 TAB ORAL TWICE A DAY, (Reported) Lactobacillus Rhamnosus Gg* (Culturelle*), 1 TAB ORAL THREE TIMES A DAY Loperamide Hcl (Loperamide), 2 MG PO Q4HR, (Reported) Metoclopramide Hcl* (Reglan*), 10 MG ORAL BEDTIME, (Reported) Metronidazole* (Flagyl*), 500 MG ORAL EVERY 8 HOURS Olanzapine* (Zyprexa*), 2.5 MG ORAL BEDTIME, (Reported) Omeprazole (Omeprazole), 20 MG ORAL DAILY, (Reported) Valproic Acid (Depakene), 250 MG ORAL TWICE A DAY, (Reported) Valproic Acid (Valproic Acid), 250 MG ORAL TWICE A DAY Miscellaneous Medications Bisacodyl (Dulcolax), 10 MG RC, (Reported) Patient History Healthcare decision maker Resuscitation status Advanced Directive on File Patient History Narrative Pmhx: as above Shx: No known history of illicit drug use or alcohol. Fhx: non contributory Physical Exam Physical Exam Narrative General Appearance: lethargic EENT: normal ENT inspection Neck: normal alignment Cardiovascular: normal peripheral pulses, normal rate, regular rhythm Respiratory/Chest: chest wall non-tender, lungs clear, normal breath sounds Abdomen: normal bowel sounds, non tender, soft Extremities: normal inspection Neurologic: motor weakness Skin: normal pigmentation, warm/dry Last 24 Hour Vital Signs Date Time Temp Pulse Resp B/P (MAP) Pulse Ox O2 Delivery O2 Flow Rate FiO2 01/05/20 12:00 98.1 87 20 129/59 (82) 98 01/05/20 09:00 81 151/52 01/05/20 08:02 Room Air 01/05/20 08:00 97.5 81 19 151/52 (85) 98 01/05/20 08:00 91 01/05/20 07:14 151/52 01/05/20 04:00 85 01/05/20 04:00 98.1 85 19 157/74 (101) 95 01/05/20 00:00 98 01/05/20 00:00 97.7 98 20 133/80 (97) 95 01/04/20 21:00 Room Air 01/04/20 21:00 98 122/63 01/04/20 20:00 96 01/04/20 20:00 97.7 98 22 122/63 (82) 99 01/04/20 17:10 157/117 01/04/20 16:00 84 01/04/20 16:00 98.1 62 20 157/117 (130) 97 Intake and Output 01/04/20 01/05/20 19:01 07:01 Output Total 800 ml Balance -800 ml Output Urine Total 800 ml # Voids 3 # Bowel Movements 1 Laboratory Tests Test 01/05/20 05:49 01/05/20 11:57 POC Whole Blood Glucose 82 MG/DL (74-106) Pending Height (Feet): 5 Height (Inches): 1.00 Weight (Pounds): 138 Medications Current Medications Medications (Trade) Dose Ordered Sig/Selene Route PRN Reason Start Time Stop Time Status Last Admin Dose Admin Acetaminophen/ Hydrocodone Bitart ([place] 7.5/325) 1 tab TWICE A DAY ORAL 01/04/20 09:00 01/11/20 08:59 Amlodipine Besylate (Norvasc) 5 mg DAILY ORAL 01/04/20 21:00 02/03/20 20:59 Benztropine Mesylate (Cogentin) 1 mg TWICE A DAY ORAL 01/04/20 09:00 02/03/20 08:59 Bisacodyl (Dulcolax) 10 mg DAILY PRN RECTAL Constipation 01/03/20 23:45 04/02/20 23:44 Dextrose (Dextrose 50%) 25 ml Q30M PRN IV Hypoglycemia 01/04/20 07:00 04/03/20 06:59 Dextrose (Dextrose 50%) 50 ml Q30M PRN IV Hypoglycemia 01/04/20 07:00 04/03/20 06:59 Dextrose/Sodium Chloride 1,000 ml @ 50 mls/hr Q20H IV 01/04/20 10:30 02/03/20 10:29 01/05/20 09:38 Docusate Sodium (Colace) 100 mg DAILY ORAL 01/04/20 09:00 02/03/20 08:59 Enoxaparin Sodium (Lovenox) 30 mg DAILY SUBQ 01/04/20 10:00 04/03/20 09:59 Furosemide (Lasix) 40 mg DAILY IV 01/05/20 09:00 02/04/20 08:59 01/05/20 09:00 Hydralazine HCl (Apresoline) 10 mg Q6H PRN IV For High Blood Pressure 01/04/20 16:58 04/03/20 16:57 01/05/20 07:14 Insulin Aspart (NovoLOG) BEFORE MEALS AND HS SUBQ 01/04/20 11:30 04/03/20 11:29 Lactobacillus Acidophilus (Culturelle) 1 tab THREE TIMES A DAY ORAL 01/04/20 09:00 04/03/20 08:59 Olanzapine (ZyPREXA) 2.5 mg BEDTIME ORAL 01/04/20 21:00 02/18/20 20:59 Quetiapine Fumarate (SEROqueL) 50 mg Q12HR ORAL 01/04/20 14:25 02/18/20 14:24 Valproate Sodium 250 mg/Dextrose 57.5 ml @ 57.5 mls/hr Q6HR IVPB 01/05/20 00:00 02/19/20 00:00 01/05/20 05:22 Assessment/Plan Assessment/Plan: Abx: Ceftriaxone 8/3 x1 Assessment: Afebrile No leukocytosis Probable UTI- unable to asses for symptoms -/ u/a 20-30, nit neg, leuk +3; ucx >100k GNR Acute encephalopathy -UDS neg RADHA on CKD Dm2 osteoporosis seizure disorder schizophrenia HTN Dementia SNF resident ([facility]) Plan: -Continue empiric Ceftriaxone #2 -f/u cx -Monitor CBC/CMP, temperatures -aspiration precautions -psych f.u Thank you for this consultation. Will continue to follow along with you. Discussed with CLARK. Constance Tinoco M.D. Jan 05, 2020 13:13
[2020-01-05] MEDS: cefTRIAXone 1 GM in D5W 55 ML IVPB SCH (14:02)
[2020-01-05 16:00] VITALS: BP 100/70
--- NOTE | 2020-01-05 17:44 | Psych Consult Progress Note ---
Psychiatry Progress Note Psychiatry Progress Note Subjective the pt is responding to internal stimuli. the pt has uti now. the pt reusing meds lacks capacity to refuses meds Medications Current Medications Medications (Trade) Dose Ordered Sig/Selene Route PRN Reason Start Time Stop Time Status Last Admin Dose Admin Acetaminophen/ Hydrocodone Bitart ([place] 7.5/325) 1 tab TWICE A DAY ORAL 01/04/20 09:00 01/11/20 08:59 Amlodipine Besylate (Norvasc) 5 mg DAILY ORAL 01/04/20 21:00 02/03/20 20:59 Benztropine Mesylate (Cogentin) 1 mg TWICE A DAY ORAL 01/04/20 09:00 02/03/20 08:59 Bisacodyl (Dulcolax) 10 mg DAILY PRN RECTAL Constipation 01/03/20 23:45 04/02/20 23:44 Ceftriaxone Sodium 1 gm/ Dextrose 55 ml @ 110 mls/hr Q24H IVPB 01/05/20 14:00 01/12/20 13:59 01/05/20 14:02 Dextrose (Dextrose 50%) 25 ml Q30M PRN IV Hypoglycemia 01/04/20 07:00 04/03/20 06:59 Dextrose (Dextrose 50%) 50 ml Q30M PRN IV Hypoglycemia 01/04/20 07:00 04/03/20 06:59 Dextrose/Sodium Chloride 1,000 ml @ 50 mls/hr Q20H IV 01/04/20 10:30 02/03/20 10:29 01/05/20 09:38 Docusate Sodium (Colace) 100 mg DAILY ORAL 01/04/20 09:00 02/03/20 08:59 Enoxaparin Sodium (Lovenox) 30 mg DAILY SUBQ 01/04/20 10:00 04/03/20 09:59 Furosemide (Lasix) 40 mg DAILY IV 01/05/20 09:00 02/04/20 08:59 01/05/20 09:00 Hydralazine HCl (Apresoline) 10 mg Q6H PRN IV For High Blood Pressure 01/04/20 16:58 04/03/20 16:57 01/05/20 07:14 Insulin Aspart (NovoLOG) BEFORE MEALS AND HS SUBQ 01/04/20 11:30 04/03/20 11:29 Lactobacillus Acidophilus (Culturelle) 1 tab THREE TIMES A DAY ORAL 01/04/20 09:00 04/03/20 08:59 Olanzapine (ZyPREXA) 2.5 mg BEDTIME ORAL 01/04/20 21:00 02/18/20 20:59 Quetiapine Fumarate (SEROqueL) 50 mg Q12HR ORAL 01/04/20 14:25 02/18/20 14:24 Valproate Sodium 250 mg/Dextrose 57.5 ml @ 57.5 mls/hr Q6HR IVPB 01/05/20 00:00 02/19/20 00:00 01/05/20 17:10 Neurological/Psychiatric: Reports: anxiety, depressed, emotional problems Allergies: Coded Allergies: No Known Allergies (Unverified , 05/11/15) Objective Data Height (Feet): 5 Height (Inches): 1.00 Weight (Pounds): 138 Additional Comments: Alert and oriented to times, self, and place. Mood is agitated. Affect is flat. Thought process is disorganized. Thought content, positive for auditory hallucination. Cognition is impaired. Insight and judgment is impaired. Assessment/Plan Status: unchanged Assessment/Plan: ASSESSMENT: AXIS I: 1. Dementia with behavioral disturbance. 2. Schizophrenia. AXIS II: Deferred. AXIS III: 1. Abnormal labs. 2. Hypertension. 3. Diabetes mellitus. AXIS IV: Low. AXIS V: 20. PLAN: 1. We will start the patient on Seroquel, DC the Haldol. 2. Increase the Depakote. 3. Continue bilateral soft restraints. Britney Pearl MD Jan 05, 2020 17:44
[2020-01-05 20:00] VITALS: BP 127/67
[2020-01-05] MEDS: OLANZapine 2.5mg tab ORAL SCH (21:00)
[2020-01-06] VITALS (7 sets, daily range): BP systolic 96–157; BP diastolic 63–74
[2020-01-06] MEDS: Haloperidol 5mg/ml Inj IM PRN ×2 (01:45→08:57)
[2020-01-06] MEDS: NovoLOG Insulin Flexpen SUBQ SCH ×4 (06:21→21:00)
[2020-01-06 06:31] LABS: BASOPHILS % (AUTO) 0.4 % (0.0-2.0); EOSINOPHILS % (AUTO) 3.5 % (0.0-3.0); HEMATOCRIT 33.9 % (37.0-47.0); HEMOGLOBIN 9.6 G/DL (12.0-16.0); LYMPHOCYTES % (AUTO) 21.4 % (20.0-45.0); MEAN CORPUSCULAR VOLUME 94 FL (80-99); MONOCYTES % (AUTO) 7.6 % (1.0-10.0); NEUTROPHILS % (AUTO) 67.1 % (45.0-75.0); PLATELET COUNT 161 K/UL (150-450); RED CELL DISTRIBUTION WIDTH 15.7 % (11.6-14.8); WHITE BLOOD COUNT 8.3 K/UL (4.8-10.8)
[2020-01-06 06:54] LABS: ANION GAP 15 mmol/L (5-15); BLOOD UREA NITROGEN 65 mg/dL (7-18); CALCIUM 9.9 MG/DL (8.5-10.1); CARBON DIOXIDE 23 MMOL/L (21-32); CHLORIDE 115 MMOL/L (98-107); CREATININE 5.5 MG/DL (0.55-1.30); POTASSIUM 4.2 MMOL/L (3.5-5.1); SODIUM 152 MMOL/L (136-145)
[2020-01-06] MEDS: Enoxaparin 30mg Inj SUBQ SCH (08:41)
[2020-01-06] MEDS: Benztropine 1mg tab ORAL SCH ×2 (08:48→18:15)
[2020-01-06] MEDS: Docusate 100mg cap ORAL SCH (08:48)
[2020-01-06] MEDS: Lactobacillus-GG tablet ORAL SCH ×3 (08:48→17:07)
[2020-01-06] MEDS: Depakote 500mg tab ORAL SCH ×2 (08:49→21:00)
[2020-01-06] MEDS: HYDROcodone/Acetamin 7.5/325 tab ORAL SCH ×2 (08:49→17:08)
--- NOTE | 2020-01-06 12:39 | Hematology/Onc Progress Note ---
Assessment/Plan Assessment/Plan ASSESSMENT AND REC'S: #. End-stage renal disease. --> patient's P.O.A listed on POLST Form in chart: Eb Gould has REFUSED HEMODIALYSIS For Patient. --> hgb 10-->9.2->9.6 #. Intermittent Noncompliance --> seen by psych for psychosis and dementia behavior/agitated --> Continue to encourage overall compliance especially with daily laboratory blood draws. --> Spoke to niece who is listed P.O.A on POLST form in chart she has refused for Hemodialysis and does not agree for HD --> have dw renal in prior and also psych #. Anemia of chronic kidney disease. --> monitor Epogen as needed #. Hypercalcemia. --> cont to monitor #. Hypertension. --> elevated refusing medications. --> sbp goal <140 --> hydralazine given prn iv #. Bradycardia --> ekg reviewed, labs noted --> atropine at bedside prn #. Diabetes. #. AFIB --> cards as needed eval #. Dvt ppx lovenox sq The time the note was entered does not necessarily correspond to the time the patient was seen Subjective Constitutional: Denies: no symptoms, chills, fever, malaise, weakness, other HEENT: Denies: no symptoms, eye pain, blurred vision, tearing, double vision, ear pain, ear discharge, nose pain, nose congestion, throat pain, throat swelling, mouth pain, mouth swelling, other Cardiovascular: Denies: no symptoms, chest pain, edema, irregular heart rate, lightheadedness, palpitations, syncope, other Respiratory: Denies: no symptoms, cough, shortness of breath, SOB with excertion, SOB at rest, sputum, wheezing, other Gastrointestinal/Abdominal: Denies: no symptoms, abdomen distended, abdominal pain, black stools, tarry stools, blood in stool, constipated, diarrhea, difficulty swallowing, nausea, poor appetite, poor fluid intake, rectal bleeding , vomiting, other Genitourinary: Denies: no symptoms, burning, discharge, frequency, flank pain, hematuria, incontinence, pain, urgency, other Neurologic/Psychiatric: Denies: no symptoms, anxiety, depressed, emotional problems, headache, numbness, paresthesia, pre-existing deficit, seizure, tingling, tremors, weakness, other Endocrine: Denies: no symptoms, excessive sweating, flushing, intolerance to cold, intolerance to heat, increased hunger, increased thirst, increased urine, unexplained weight gain, unexplained weight loss, other Allergies: Coded Allergies: No Known Allergies (Unverified , 05/11/15) Subjective 01/04 on soft restraints, with fluids, no night sweats, meds converted to iv 01/05 ++agitated, no bleeding, dw rn, no night sweats, refusing meds Objective Objective Current Medications Medications (Trade) Dose Ordered Sig/Selene Route PRN Reason Start Time Stop Time Status Last Admin Dose Admin Acetaminophen/ Hydrocodone Bitart ([place] 7.5/325) 1 tab TWICE A DAY ORAL 01/04/20 09:00 01/11/20 08:59 Amlodipine Besylate (Norvasc) 5 mg DAILY ORAL 01/04/20 21:00 02/03/20 20:59 Benztropine Mesylate (Cogentin) 1 mg TWICE A DAY ORAL 01/04/20 09:00 02/03/20 08:59 Bisacodyl (Dulcolax) 10 mg DAILY PRN RECTAL Constipation 01/03/20 23:45 04/02/20 23:44 Ceftriaxone Sodium 1 gm/ Dextrose 55 ml @ 110 mls/hr Q24H IVPB 01/05/20 14:00 01/12/20 13:59 01/05/20 14:02 Dextrose (Dextrose 50%) 25 ml Q30M PRN IV Hypoglycemia 01/04/20 07:00 04/03/20 06:59 01/05/20 21:45 Dextrose (Dextrose 50%) 50 ml Q30M PRN IV Hypoglycemia 01/04/20 07:00 04/03/20 06:59 Dextrose/Sodium Chloride 1,000 ml @ 50 mls/hr Q20H IV 01/04/20 10:30 02/03/20 10:29 01/05/20 09:38 Divalproex Sodium (Depakote) 500 mg EVERY 12 HOURS ORAL 01/06/20 09:00 02/05/20 08:59 Docusate Sodium (Colace) 100 mg DAILY ORAL 01/04/20 09:00 02/03/20 08:59 Enoxaparin Sodium (Lovenox) 30 mg DAILY SUBQ 01/04/20 10:00 04/03/20 09:59 01/06/20 08:41 Furosemide (Lasix) 40 mg DAILY IV 01/05/20 09:00 02/04/20 08:59 01/06/20 08:37 Haloperidol Lactate (Haldol) 5 mg Q6H PRN IM Agitation 01/05/20 23:45 02/19/20 23:44 01/06/20 08:57 Insulin Aspart (NovoLOG) BEFORE MEALS AND HS SUBQ 01/04/20 11:30 04/03/20 11:29 Lactobacillus Acidophilus (Culturelle) 1 tab THREE TIMES A DAY ORAL 01/04/20 09:00 04/03/20 08:59 Quetiapine Fumarate (SEROqueL) 50 mg Q12HR ORAL 01/04/20 14:25 02/18/20 14:24 Last 24 Hour Vital Signs Date Time Temp Pulse Resp B/P (MAP) Pulse Ox O2 Delivery O2 Flow Rate FiO2 01/06/20 12:00 98.1 19 157/74 (101) 95 01/06/20 09:00 Room Air 01/06/20 08:00 97.8 102 17 96/69 (78) 95 01/06/20 04:00 97.3 90 20 135/69 (91) 95 01/06/20 00:00 98.0 88 20 120/68 (85) 96 01/05/20 21:00 Room Air 01/05/20 20:00 97.3 83 20 127/67 (87) 97 01/05/20 16:00 97.7 90 21 100/70 (80) 97 01/05/20 12:00 98.1 87 20 129/59 (82) 98 01/05/20 11:55 80 01/05/20 09:00 81 151/52 01/05/20 08:02 Room Air 01/05/20 08:00 97.5 81 19 151/52 (85) 98 01/05/20 08:00 91 01/05/20 07:14 151/52 01/05/20 04:00 85 01/05/20 04:00 98.1 85 19 157/74 (101) 95 01/05/20 00:00 98 01/05/20 00:00 97.7 98 20 133/80 (97) 95 01/04/20 21:00 Room Air 01/04/20 21:00 98 122/63 01/04/20 20:00 96 01/04/20 20:00 97.7 98 22 122/63 (82) 99 01/04/20 17:10 157/117 01/04/20 16:00 84 01/04/20 16:00 98.1 62 20 157/117 (130) 97 Intake and Output 01/05/20 01/06/20 19:00 07:00 Intake Total 205 ml 50 ml Balance 205 ml 50 ml IV Total 205 ml 50 ml # Voids 1 3 Labs Test 01/03/20 18:20 01/03/20 18:40 01/04/20 05:43 01/04/20 07:08 Urine Color Pale yellow Urine Appearance Cloudy Urine pH 8 (4.5-8.0) Urine Specific [place] 1.010 (1.005-1.035) Urine Protein 3+ (NEGATIVE) Urine Glucose (UA) Negative (NEGATIVE) Urine Ketones 1+ (NEGATIVE) Urine Blood 3+ (NEGATIVE) Urine Nitrite Negative (NEGATIVE) Urine Bilirubin Negative (NEGATIVE) Urine Urobilinogen Normal MG/DL (0.0-1.0) Urine Leukocyte Esterase 3+ (NEGATIVE) Urine RBC Tntc /HPF (0 - 2) Urine WBC 20-30 /HPF (0 - 2) Urine Squamous Epithelial Cells Occasional /LPF Urine Amorphous Sediment Moderate /LPF (NONE) Urine Bacteria Many /HPF (NONE) Urine Opiates Screen Negative (NEGATIVE) Urine Barbiturates Screen Negative (NEGATIVE) Phencyclidine (PCP) Screen Negative (NEGATIVE) Urine Amphetamines Screen Negative (NEGATIVE) Urine Benzodiazepines Screen Negative (NEGATIVE) Urine Cocaine Screen Negative (NEGATIVE) Urine Marijuana (THC) Screen Negative (NEGATIVE) White Blood Count 9.1 K/UL (4.8-10.8) 9.6 K/UL (4.8-10.8) Red Blood Count 3.64 M/UL (4.20-5.40) 3.38 M/UL (4.20-5.40) Hemoglobin 10.1 G/DL (12.0-16.0) 9.2 G/DL (12.0-16.0) Hematocrit 34.6 % (37.0-47.0) 32.3 % (37.0-47.0) Mean Corpuscular Volume 95 FL (80-99) 96 FL (80-99) Mean Corpuscular Hemoglobin 27.8 PG (27.0-31.0) 27.1 PG (27.0-31.0) Mean Corpuscular Hemoglobin Concent 29.2 G/DL (32.0-36.0) 28.4 G/DL (32.0-36.0) Red Cell Distribution Width 16.2 % (11.6-14.8) 15.9 % (11.6-14.8) Platelet Count 177 K/UL (150-450) 171 K/UL (150-450) Mean Platelet Volume 8.0 FL (6.5-10.1) 7.6 FL (6.5-10.1) Neutrophils (%) (Auto) 77.8 % (45.0-75.0) 75.6 % (45.0-75.0) Lymphocytes (%) (Auto) 11.8 % (20.0-45.0) 15.0 % (20.0-45.0) Monocytes (%) (Auto) 8.2 % (1.0-10.0) 7.9 % (1.0-10.0) Eosinophils (%) (Auto) 1.0 % (0.0-3.0) 0.9 % (0.0-3.0) Basophils (%) (Auto) 1.2 % (0.0-2.0) 0.5 % (0.0-2.0) Sodium Level 146 MMOL/L (136-145) 148 MMOL/L (136-145) Potassium Level 4.7 MMOL/L (3.5-5.1) 4.6 MMOL/L (3.5-5.1) Chloride Level 109 MMOL/L (98-107) 112 MMOL/L (98-107) Carbon Dioxide Level 21 MMOL/L (21-32) 21 MMOL/L (21-32) Anion Gap 16 mmol/L (5-15) 15 mmol/L (5-15) Blood Urea Nitrogen 72 mg/dL (7-18) 72 mg/dL (7-18) Creatinine 5.9 MG/DL (0.55-1.30) 5.8 MG/DL (0.55-1.30) Estimat Glomerular Filtration Rate 8.2 mL/min (>60) 8.5 mL/min (>60) Glucose Level 64 MG/DL (74-106) 48 MG/DL (74-106) Calcium Level 10.1 MG/DL (8.5-10.1) 9.8 MG/DL (8.5-10.1) Total Bilirubin 0.4 MG/DL (0.2-1.0) Aspartate Amino Transf (AST/SGOT) 20 U/L (15-37) Alanine Aminotransferase (ALT/SGPT) 10 U/L (12-78) Alkaline Phosphatase 110 U/L (46-116) Total Protein 8.8 G/DL (6.4-8.2) Albumin 4.4 G/DL (3.4-5.0) Globulin 4.4 g/dL Albumin/Globulin Ratio 1.0 (1.0-2.7) Salicylates Level 1.4 ug/mL (2.8-20) Acetaminophen Level < 2 MCG/ML (10-30) Serum Alcohol < 3 mg/dL Test 01/05/20 05:49 01/05/20 11:57 01/06/20 04:56 POC Whole Blood Glucose 82 MG/DL (74-106) White Blood Count 8.3 K/UL (4.8-10.8) Red Blood Count 3.60 M/UL (4.20-5.40) Hemoglobin 9.6 G/DL (12.0-16.0) Hematocrit 33.9 % (37.0-47.0) Mean Corpuscular Volume 94 FL (80-99) Mean Corpuscular Hemoglobin 26.8 PG (27.0-31.0) Mean Corpuscular Hemoglobin Concent 28.4 G/DL (32.0-36.0) Red Cell Distribution Width 15.7 % (11.6-14.8) Platelet Count 161 K/UL (150-450) Mean Platelet Volume 8.1 FL (6.5-10.1) Neutrophils (%) (Auto) 67.1 % (45.0-75.0) Lymphocytes (%) (Auto) 21.4 % (20.0-45.0) Monocytes (%) (Auto) 7.6 % (1.0-10.0) Eosinophils (%) (Auto) 3.5 % (0.0-3.0) Basophils (%) (Auto) 0.4 % (0.0-2.0) Sodium Level 152 MMOL/L (136-145) Potassium Level 4.2 MMOL/L (3.5-5.1) Chloride Level 115 MMOL/L (98-107) Carbon Dioxide Level 23 MMOL/L (21-32) Anion Gap 15 mmol/L (5-15) Blood Urea Nitrogen 65 mg/dL (7-18) Creatinine 5.5 MG/DL (0.55-1.30) Estimat Glomerular Filtration Rate 9.0 mL/min (>60) Glucose Level 93 MG/DL (74-106) Calcium Level 9.9 MG/DL (8.5-10.1) Height (Feet): 5 Height (Inches): 1.00 Weight (Pounds): 138 Objective Physical Exam: Vitals: reviewed General: NAD HEENT: nc, at Neck: supple Chest: clear breath sounds bilaterally Cardiovascular: RRR, no s3, s4 Abdomen: soft, nontender, nd Extremities: no cce, normal range of motion Neuro: alert and oriented Star Toth MD Jan 06, 2020 12:39
--- NOTE | 2020-01-06 13:35 | General Progress Note ---
Assessment/Plan Problem List: (1) Anemia ICD Codes: D64.9 - Anemia, unspecified SNOMED: 428657408 (2) CKD (chronic kidney disease) ICD Codes: N18.9 - Chronic kidney disease, unspecified SNOMED: 080225868, [id number] Qualifiers: Qualified Codes: N18.9 - Chronic kidney disease, unspecified (3) UTI (urinary tract infection) ICD Codes: N39.0 - Urinary tract infection, site not specified SNOMED: 84459224 (4) Failure to thrive SNOMED: 19823418 Status: unchanged Assessment/Plan: pt diet abx cbc bmp am psyc f/u family refuse dialysis per psyc Subjective Constitutional: Reports: weakness Allergies: Coded Allergies: No Known Allergies (Unverified , 05/11/15) All Systems: reviewed and negative except above Subjective sleepy calm Objective Last 24 Hour Vital Signs Date Time Temp Pulse Resp B/P (MAP) Pulse Ox O2 Delivery O2 Flow Rate FiO2 01/06/20 12:00 98.1 19 157/74 (101) 95 01/06/20 09:00 Room Air 01/06/20 08:00 97.8 102 17 96/69 (78) 95 01/06/20 04:00 97.3 90 20 135/69 (91) 95 01/06/20 00:00 98.0 88 20 120/68 (85) 96 01/05/20 21:00 Room Air 01/05/20 20:00 97.3 83 20 127/67 (87) 97 01/05/20 16:00 97.7 90 21 100/70 (80) 97 Intake and Output 01/05/20 01/06/20 19:00 07:00 Intake Total 205 ml 50 ml Balance 205 ml 50 ml IV Total 205 ml 50 ml # Voids 1 3 Laboratory Tests 01/06/20 04:56: White Blood Count 8.3, Red Blood Count 3.60L, Hemoglobin 9.6L, Hematocrit 33.9L , Mean Corpuscular Volume 94, Mean Corpuscular Hemoglobin 26.8L, Mean Corpuscular Hemoglobin Concent 28.4L, Red Cell Distribution Width 15.7H, Platelet Count 161, Mean Platelet Volume 8.1, Neutrophils (%) (Auto) 67.1, Lymphocytes (%) (Auto) 21.4, Monocytes (%) (Auto) 7.6, Eosinophils (%) (Auto) 3.5H, Basophils (%) (Auto) 0.4, Sodium Level 152H, Potassium Level 4.2, Chloride Level 115H, Carbon Dioxide Level 23, Anion Gap 15, Blood Urea Nitrogen 65H, Creatinine 5.5H, Estimat Glomerular Filtration Rate 9.0, Glucose Level 93, Calcium Level 9.9 Height (Feet): 5 Height (Inches): 1.00 Weight (Pounds): 138 General Appearance: lethargic EENT: normal ENT inspection Neck: normal alignment Cardiovascular: normal peripheral pulses, normal rate, regular rhythm Respiratory/Chest: chest wall non-tender, lungs clear, normal breath sounds Abdomen: normal bowel sounds, non tender, soft Extremities: normal inspection Edema: no edema noted Arm (L), no edema noted Arm (R), no edema noted Leg (L), no edema noted Leg (R), no edema noted Pedal (L), no edema noted Pedal (R), no edema noted Generalized Neurologic: motor weakness Skin: normal pigmentation, warm/dry Bravo Martins DO Jan 06, 2020 13:35
[2020-01-06] MEDS: cefTRIAXone 1 GM in D5W 55 ML IVPB SCH (13:42)
--- NOTE | 2020-01-06 14:12 | Infectious Diseases Prog Note ---
Assessment/Plan Assessment: Afebrile No leukocytosis Probable UTI- unable to asses for symptoms -01/02 u/a 20-30, nit neg, leuk +3; ucx >100k P. mirabilis (R levaquin, macrobid ) Acute encephalopathy -UDS neg RADHA on CKD; improving Dm2 osteoporosis seizure disorder schizophrenia HTN Dementia SNF resident ([facility]) Plan: -Continue Ceftriaxone #3/5 for UTI -f/u cx -Monitor CBC/CMP, temperatures -aspiration precautions -psych f.u Thank you for this consultation. Will continue to follow along with you. Discussed with RN. Subjective Allergies: Coded Allergies: No Known Allergies (Unverified , 05/11/15) afebrile Objective Last 24 Hour Vital Signs Date Time Temp Pulse Resp B/P (MAP) Pulse Ox O2 Delivery O2 Flow Rate FiO2 01/06/20 12:00 98.1 19 157/74 (101) 95 01/06/20 09:00 Room Air 01/06/20 08:00 97.8 102 17 96/69 (78) 95 01/06/20 04:00 97.3 90 20 135/69 (91) 95 01/06/20 00:00 98.0 88 20 120/68 (85) 96 01/05/20 21:00 Room Air 01/05/20 20:00 97.3 83 20 127/67 (87) 97 01/05/20 16:00 97.7 90 21 100/70 (80) 97 Height (Feet): 5 Height (Inches): 1.00 Weight (Pounds): 138 General Appearance: lethargic EENT: normal ENT inspection Neck: normal alignment Cardiovascular: normal peripheral pulses, normal rate, regular rhythm Respiratory/Chest: chest wall non-tender, lungs clear, normal breath sounds Abdomen: normal bowel sounds, non tender, soft Extremities: normal inspection Neurologic: motor weakness Skin: normal pigmentation, warm/dry Microbiology Date/Time Source Procedure Growth Status 01/03/20 21:35 Nasal Nares MRSA Culture - Final NO METHICILLIN RESISTANT STAPH AUREUS... Complete 01/03/20 18:20 Urine,Clean Catch Urine Culture - Final Proteus Mirabilis Complete 01/04/20 07:00 Rectum VRE Culture - Final Enterococcus Faecalis - Vre Complete 01/04/20 07:00 Rectum - Final NO CARBAPENEM-RESISTANT ENTEROBACTERI... Complete 01/03/20 21:35 Rectum - Final NO CARBAPENEM-RESISTANT ENTEROBACTERI... Complete 01/03/20 21:35 Rectum VRE Culture - Final Enterococcus Faecalis - Vre Complete Laboratory Tests Test 01/06/20 04:56 White Blood Count 8.3 K/UL (4.8-10.8) Red Blood Count 3.60 M/UL (4.20-5.40) L Hemoglobin 9.6 G/DL (12.0-16.0) L Hematocrit 33.9 % (37.0-47.0) L Mean Corpuscular Volume 94 FL (80-99) Mean Corpuscular Hemoglobin 26.8 PG (27.0-31.0) L Mean Corpuscular Hemoglobin Concent 28.4 G/DL (32.0-36.0) L Red Cell Distribution Width 15.7 % (11.6-14.8) H Platelet Count 161 K/UL (150-450) Mean Platelet Volume 8.1 FL (6.5-10.1) Neutrophils (%) (Auto) 67.1 % (45.0-75.0) Lymphocytes (%) (Auto) 21.4 % (20.0-45.0) Monocytes (%) (Auto) 7.6 % (1.0-10.0) Eosinophils (%) (Auto) 3.5 % (0.0-3.0) H Basophils (%) (Auto) 0.4 % (0.0-2.0) Sodium Level 152 MMOL/L (136-145) H Potassium Level 4.2 MMOL/L (3.5-5.1) Chloride Level 115 MMOL/L (98-107) H Carbon Dioxide Level 23 MMOL/L (21-32) Anion Gap 15 mmol/L (5-15) Blood Urea Nitrogen 65 mg/dL (7-18) H Creatinine 5.5 MG/DL (0.55-1.30) H Estimat Glomerular Filtration Rate 9.0 mL/min (>60) Glucose Level 93 MG/DL (74-106) Calcium Level 9.9 MG/DL (8.5-10.1) Current Medications Medications (Trade) Dose Ordered Sig/Selene Route PRN Reason Start Time Stop Time Status Last Admin Dose Admin Acetaminophen/ Hydrocodone Bitart ([place] 7.5/325) 1 tab TWICE A DAY ORAL 01/04/20 09:00 01/11/20 08:59 Amlodipine Besylate (Norvasc) 5 mg DAILY ORAL 01/04/20 21:00 02/03/20 20:59 Benztropine Mesylate (Cogentin) 1 mg TWICE A DAY ORAL 01/04/20 09:00 02/03/20 08:59 Bisacodyl (Dulcolax) 10 mg DAILY PRN RECTAL Constipation 01/03/20 23:45 04/02/20 23:44 Ceftriaxone Sodium 1 gm/ Dextrose 55 ml @ 110 mls/hr Q24H IVPB 01/05/20 14:00 01/12/20 13:59 01/06/20 13:42 Dextrose (Dextrose 50%) 25 ml Q30M PRN IV Hypoglycemia 01/04/20 07:00 04/03/20 06:59 01/05/20 21:45 Dextrose (Dextrose 50%) 50 ml Q30M PRN IV Hypoglycemia 01/04/20 07:00 04/03/20 06:59 Dextrose/Sodium Chloride 1,000 ml @ 50 mls/hr Q20H IV 01/04/20 10:30 02/03/20 10:29 01/05/20 09:38 Divalproex Sodium (Depakote) 500 mg EVERY 12 HOURS ORAL 01/06/20 09:00 02/05/20 08:59 Docusate Sodium (Colace) 100 mg DAILY ORAL 01/04/20 09:00 02/03/20 08:59 Enoxaparin Sodium (Lovenox) 30 mg DAILY SUBQ 01/04/20 10:00 04/03/20 09:59 01/06/20 08:41 Furosemide (Lasix) 40 mg DAILY IV 01/05/20 09:00 02/04/20 08:59 01/06/20 08:37 Haloperidol Lactate (Haldol) 5 mg Q6H PRN IM Agitation 01/05/20 23:45 02/19/20 23:44 01/06/20 08:57 Insulin Aspart (NovoLOG) BEFORE MEALS AND HS SUBQ 01/04/20 11:30 04/03/20 11:29 Lactobacillus Acidophilus (Culturelle) 1 tab THREE TIMES A DAY ORAL 01/04/20 09:00 04/03/20 08:59 01/06/20 13:42 Quetiapine Fumarate (SEROqueL) 50 mg Q12HR ORAL 01/04/20 14:25 02/18/20 14:24 Constance Tinoco M.D. Jan 06, 2020 14:12
[2020-01-06] MEDS ORDERED: Haloperidol Decanoate (Long Acting) 50mg Inj IM SCH (18:00)
--- NOTE | 2020-01-06 23:20 | Psych Consult Progress Note ---
Psychiatry Progress Note Psychiatry Progress Note Subjective the pt is responding to internal stimuli. the pt has uti now. the pt refusing meds lacks capacity to refuses meds the pt is kicking staFF Medications Current Medications Medications (Trade) Dose Ordered Sig/Selene Route PRN Reason Start Time Stop Time Status Last Admin Dose Admin Acetaminophen/ Hydrocodone Bitart ([place] 7.5/325) 1 tab TWICE A DAY ORAL 01/04/20 09:00 01/11/20 08:59 01/06/20 17:08 Amlodipine Besylate (Norvasc) 5 mg DAILY ORAL 01/04/20 21:00 02/03/20 20:59 Benztropine Mesylate (Cogentin) 1 mg TWICE A DAY ORAL 01/04/20 09:00 02/03/20 08:59 01/06/20 18:15 Bisacodyl (Dulcolax) 10 mg DAILY PRN RECTAL Constipation 01/03/20 23:45 04/02/20 23:44 Ceftriaxone Sodium 1 gm/ Dextrose 55 ml @ 110 mls/hr Q24H IVPB 01/05/20 14:00 01/12/20 13:59 01/06/20 13:42 Dextrose (Dextrose 50%) 25 ml Q30M PRN IV Hypoglycemia 01/04/20 07:00 04/03/20 06:59 01/06/20 17:23 Dextrose (Dextrose 50%) 50 ml Q30M PRN IV Hypoglycemia 01/04/20 07:00 04/03/20 06:59 Dextrose/Sodium Chloride 1,000 ml @ 50 mls/hr Q20H IV 01/04/20 10:30 02/03/20 10:29 01/05/20 09:38 Divalproex Sodium (Depakote) 500 mg EVERY 12 HOURS ORAL 01/06/20 09:00 02/05/20 08:59 Docusate Sodium (Colace) 100 mg DAILY ORAL 01/04/20 09:00 02/03/20 08:59 Enoxaparin Sodium (Lovenox) 30 mg DAILY SUBQ 01/04/20 10:00 04/03/20 09:59 01/06/20 08:41 Furosemide (Lasix) 40 mg DAILY IV 01/05/20 09:00 02/04/20 08:59 01/06/20 08:37 Haloperidol Lactate (Haldol) 5 mg Q6H PRN IM Agitation 01/05/20 23:45 02/19/20 23:44 01/06/20 08:57 Insulin Aspart (NovoLOG) BEFORE MEALS AND HS SUBQ 01/04/20 11:30 04/03/20 11:29 Lactobacillus Acidophilus (Culturelle) 1 tab THREE TIMES A DAY ORAL 01/04/20 09:00 04/03/20 08:59 01/06/20 17:07 Quetiapine Fumarate (SEROqueL) 50 mg Q12HR ORAL 01/04/20 14:25 02/18/20 14:24 Neurological/Psychiatric: Reports: depressed; Denies: no symptoms, anxiety, emotional problems, headache, numbness, paresthesia, pre-existing deficit, seizure, tingling, tremors, weakness, other Allergies: Coded Allergies: No Known Allergies (Unverified , 05/11/15) Objective Data Height (Feet): 5 Height (Inches): 1.00 Weight (Pounds): 138 Additional Comments: MENTAL STATUS EXAMINATION: Alert and oriented to times, self, and place. Mood is agitated. Affect is flat. Thought process is disorganized. Thought content, positive for auditory hallucination. Cognition is impaired. Insight and judgment is impaired. Assessment/Plan [place] I: ASSESSMENT: AXIS I: 1. Dementia with behavioral disturbance. 2. Schizophrenia. AXIS II: Deferred. AXIS III: 1. Abnormal labs. 2. Hypertension. 3. Diabetes mellitus. AXIS IV: Low. AXIS V: 20. PLAN: 1. We will start the patient on Seroquel, DC the Haldol. 2. Increase the Depakote. 3. Continue bilateral soft restraints. Status: unchanged Assessment/Plan: ASSESSMENT: AXIS I: 1. Dementia with behavioral disturbance. 2. Schizophrenia. AXIS II: Deferred. AXIS III: 1. Abnormal labs. 2. Hypertension. 3. Diabetes mellitus. AXIS IV: Low. AXIS V: 20. PLAN: 1. We will start the patient on Seroquel, Haldol IM. 2. Increase the Depakote. 3. Continue bilateral soft restraints. 4. haldol Britney Sandoval MD Jan 06, 2020 23:20
[2020-01-06] MEDS: D5 1/2NS 1,000 ML IV SCH (23:30)
[2020-01-07 04:00] VITALS: BP 150/78
[2020-01-07] MEDS: NovoLOG Insulin Flexpen SUBQ SCH ×2 (06:09→11:30)
[2020-01-07 06:29] LABS: BASOPHILS % (AUTO) 0.2 % (0.0-2.0); EOSINOPHILS % (AUTO) 1.1 % (0.0-3.0); HEMATOCRIT 34.3 % (37.0-47.0); HEMOGLOBIN 9.7 G/DL (12.0-16.0); MEAN CORPUSCULAR VOLUME 96 FL (80-99); MONOCYTES % (AUTO) 6.4 % (1.0-10.0); NEUTROPHILS % (AUTO) 79.2 % (45.0-75.0); PLATELET COUNT 159 K/UL (150-450); RED BLOOD COUNT 3.59 M/UL (4.20-5.40); RED CELL DISTRIBUTION WIDTH 16.6 % (11.6-14.8); WHITE BLOOD COUNT 7.5 K/UL (4.8-10.8)
[2020-01-07 06:42] LABS: ANION GAP 13 mmol/L (5-15); BLOOD UREA NITROGEN 58 mg/dL (7-18); CALCIUM 9.6 MG/DL (8.5-10.1); CARBON DIOXIDE 24 MMOL/L (21-32); CHLORIDE 116 MMOL/L (98-107); CREATININE 5.5 MG/DL (0.55-1.30); POTASSIUM 3.9 MMOL/L (3.5-5.1); SODIUM 153 MMOL/L (136-145)
[2020-01-07 08:00] VITALS: BP 153/68
[2020-01-07] MEDS: HYDROcodone/Acetamin 7.5/325 tab ORAL SCH ×2 (08:57→09:00)
[2020-01-07] MEDS: Lactobacillus-GG tablet ORAL SCH ×3 (08:58→13:00)
[2020-01-07] MEDS: Docusate 100mg cap ORAL SCH ×2 (08:58→09:00)
[2020-01-07] MEDS: Depakote 500mg tab ORAL SCH ×2 (08:58→09:00)
[2020-01-07] MEDS: Benztropine 1mg tab ORAL SCH ×2 (08:58→09:00)
[2020-01-07] MEDS: Enoxaparin 30mg Inj SUBQ SCH ×2 (08:59→09:00)
[2020-01-07 09:00] VITALS: BP 153/68
--- NOTE | 2020-01-07 10:15 | General Progress Note ---
Assessment/Plan Problem List: (1) Anemia ICD Codes: D64.9 - Anemia, unspecified SNOMED: 932788232 (2) CKD (chronic kidney disease) ICD Codes: N18.9 - Chronic kidney disease, unspecified SNOMED: 674120658, 450604699 Qualifiers: Qualified Codes: N18.9 - Chronic kidney disease, unspecified (3) UTI (urinary tract infection) ICD Codes: N39.0 - Urinary tract infection, site not specified SNOMED: 57087992 (4) Failure to thrive SNOMED: 02722801 Status: stable, progressing Assessment/Plan: pt diet abx cbc bmp am psyc f/u family refuse dialysis per psyc dc if clear by psyc Subjective Constitutional: Reports: weakness Allergies: Coded Allergies: No Known Allergies (Unverified , 05/11/15) All Systems: reviewed and negative except above Subjective sleepy calm Objective Last 24 Hour Vital Signs Date Time Temp Pulse Resp B/P (MAP) Pulse Ox O2 Delivery O2 Flow Rate FiO2 01/07/20 09:00 86 153/68 01/07/20 08:00 97.5 86 16 153/68 (96) 94 01/07/20 04:00 98.9 86 20 150/78 (102) 95 01/06/20 23:49 98.7 86 20 130/69 (89) 95 01/06/20 21:00 98.9 86 20 156/74 (101) 95 01/06/20 21:00 Room Air 01/06/20 17:40 97.7 01/06/20 16:00 97.7 20 122/63 (82) 99 01/06/20 12:00 98.1 19 157/74 (101) 95 Intake and Output 01/06/20 01/07/20 19:00 07:00 Intake Total 500 ml 500 ml Balance 500 ml 500 ml IV Total 300 ml 500 ml Other 200 ml # Voids 2 3 # Bowel Movements 2 Laboratory Tests 01/07/20 05:40: White Blood Count 7.5, Red Blood Count 3.59L, Hemoglobin 9.7L, Hematocrit 34.3L , Mean Corpuscular Volume 96, Mean Corpuscular Hemoglobin 27.0, Mean Corpuscular Hemoglobin Concent 28.3L, Red Cell Distribution Width 16.6H, Platelet Count 159, Mean Platelet Volume 8.1, Neutrophils (%) (Auto) 79.2H, Lymphocytes (%) (Auto) 13.0L, Monocytes (%) (Auto) 6.4, Eosinophils (%) (Auto) 1.1, Basophils (%) (Auto) 0.2, Sodium Level 153H, Potassium Level 3.9, Chloride Level 116H, Carbon Dioxide Level 24, Anion Gap 13, Blood Urea Nitrogen 58H, Creatinine 5.5H, Estimat Glomerular Filtration Rate 9.0, Glucose Level 84, Calcium Level 9.6 Height (Feet): 5 Height (Inches): 1.00 Weight (Pounds): 138 General Appearance: lethargic EENT: normal ENT inspection Neck: normal alignment Cardiovascular: normal peripheral pulses, normal rate, regular rhythm Respiratory/Chest: chest wall non-tender, lungs clear, normal breath sounds Abdomen: normal bowel sounds, non tender, soft Extremities: normal inspection Edema: no edema noted Arm (L), no edema noted Arm (R), no edema noted Leg (L), no edema noted Leg (R), no edema noted Pedal (L), no edema noted Pedal (R), no edema noted Generalized Neurologic: motor weakness Skin: normal pigmentation, warm/dry Bravo Martins DO Jan 07, 2020 10:15
--- NOTE | 2020-01-07 11:14 | Infectious Diseases Prog Note ---
Assessment/Plan Assessment: Afebrile No leukocytosis Probable UTI- unable to asses for symptoms -01/02 u/a 20-30, nit neg, leuk +3; ucx >100k P. mirabilis (R levaquin, macrobid ) Acute encephalopathy -UDS neg RADHA on CKD; improving Dm2 osteoporosis seizure disorder schizophrenia HTN Dementia SNF resident ([facility]) Plan: -Continue Ceftriaxone #4/5 for UTI -f/u cx -Monitor CBC/CMP, temperatures -aspiration precautions -psych f.u Thank you for this consultation. Will continue to follow along with you. Discussed with RN. Subjective Allergies: Coded Allergies: No Known Allergies (Unverified , 05/11/15) afebrile Objective Last 24 Hour Vital Signs Date Time Temp Pulse Resp B/P (MAP) Pulse Ox O2 Delivery O2 Flow Rate FiO2 01/07/20 09:00 Room Air 01/07/20 09:00 86 153/68 01/07/20 08:00 97.5 86 16 153/68 (96) 94 01/07/20 04:00 98.9 86 20 150/78 (102) 95 01/06/20 23:49 98.7 86 20 130/69 (89) 95 01/06/20 21:00 98.9 86 20 156/74 (101) 95 01/06/20 21:00 Room Air 01/06/20 17:40 97.7 01/06/20 16:00 97.7 20 122/63 (82) 99 01/06/20 12:00 98.1 19 157/74 (101) 95 Height (Feet): 5 Height (Inches): 1.00 Weight (Pounds): 138 General Appearance: lethargic EENT: normal ENT inspection Neck: normal alignment Cardiovascular: normal peripheral pulses, normal rate, regular rhythm Respiratory/Chest: chest wall non-tender, lungs clear, normal breath sounds Abdomen: normal bowel sounds, non tender, soft Extremities: normal inspection Neurologic: motor weakness Skin: normal pigmentation, warm/dry Laboratory Tests Test 01/07/20 05:40 White Blood Count 7.5 K/UL (4.8-10.8) Red Blood Count 3.59 M/UL (4.20-5.40) L Hemoglobin 9.7 G/DL (12.0-16.0) L Hematocrit 34.3 % (37.0-47.0) L Mean Corpuscular Volume 96 FL (80-99) Mean Corpuscular Hemoglobin 27.0 PG (27.0-31.0) Mean Corpuscular Hemoglobin Concent 28.3 G/DL (32.0-36.0) L Red Cell Distribution Width 16.6 % (11.6-14.8) H Platelet Count 159 K/UL (150-450) Mean Platelet Volume 8.1 FL (6.5-10.1) Neutrophils (%) (Auto) 79.2 % (45.0-75.0) H Lymphocytes (%) (Auto) 13.0 % (20.0-45.0) L Monocytes (%) (Auto) 6.4 % (1.0-10.0) Eosinophils (%) (Auto) 1.1 % (0.0-3.0) Basophils (%) (Auto) 0.2 % (0.0-2.0) Sodium Level 153 MMOL/L (136-145) H Potassium Level 3.9 MMOL/L (3.5-5.1) Chloride Level 116 MMOL/L (98-107) H Carbon Dioxide Level 24 MMOL/L (21-32) Anion Gap 13 mmol/L (5-15) Blood Urea Nitrogen 58 mg/dL (7-18) H Creatinine 5.5 MG/DL (0.55-1.30) H Estimat Glomerular Filtration Rate 9.0 mL/min (>60) Glucose Level 84 MG/DL (74-106) Calcium Level 9.6 MG/DL (8.5-10.1) Current Medications Medications (Trade) Dose Ordered Sig/Selene Route PRN Reason Start Time Stop Time Status Last Admin Dose Admin Acetaminophen/ Hydrocodone Bitart ([place] 7.5/325) 1 tab TWICE A DAY ORAL 01/04/20 09:00 01/11/20 08:59 01/06/20 17:08 Amlodipine Besylate (Norvasc) 5 mg DAILY ORAL 01/04/20 21:00 02/03/20 20:59 Benztropine Mesylate (Cogentin) 1 mg TWICE A DAY ORAL 01/04/20 09:00 02/03/20 08:59 01/06/20 18:15 Bisacodyl (Dulcolax) 10 mg DAILY PRN RECTAL Constipation 01/03/20 23:45 04/02/20 23:44 Ceftriaxone Sodium 1 gm/ Dextrose 55 ml @ 110 mls/hr Q24H IVPB 01/05/20 14:00 01/12/20 13:59 01/06/20 13:42 Dextrose (Dextrose 50%) 25 ml Q30M PRN IV Hypoglycemia 01/04/20 07:00 04/03/20 06:59 01/06/20 17:23 Dextrose (Dextrose 50%) 50 ml Q30M PRN IV Hypoglycemia 01/04/20 07:00 04/03/20 06:59 Dextrose/Sodium Chloride 1,000 ml @ 50 mls/hr Q20H IV 01/04/20 10:30 02/03/20 10:29 01/06/20 23:30 Divalproex Sodium (Depakote) 500 mg EVERY 12 HOURS ORAL 01/06/20 09:00 02/05/20 08:59 Docusate Sodium (Colace) 100 mg DAILY ORAL 01/04/20 09:00 02/03/20 08:59 Enoxaparin Sodium (Lovenox) 30 mg DAILY SUBQ 01/04/20 10:00 04/03/20 09:59 01/06/20 08:41 Furosemide (Lasix) 40 mg DAILY IV 01/05/20 09:00 02/04/20 08:59 01/07/20 08:58 Haloperidol Lactate (Haldol) 5 mg Q6H PRN IM Agitation 01/05/20 23:45 02/19/20 23:44 01/06/20 08:57 Insulin Aspart (NovoLOG) BEFORE MEALS AND HS SUBQ 01/04/20 11:30 04/03/20 11:29 Lactobacillus Acidophilus (Culturelle) 1 tab THREE TIMES A DAY ORAL 01/04/20 09:00 04/03/20 08:59 01/06/20 17:07 Quetiapine Fumarate (SEROqueL) 50 mg Q12HR ORAL 01/04/20 14:25 02/18/20 14:24 Constance Tinoco M.D. Jan 07, 2020 11:14
[2020-01-07] MEDS ORDERED: CEFTRIAXONE1 G1 IVPB (11:18)
--- NOTE | 2020-01-07 12:07 | Hematology/Onc Progress Note ---
Assessment/Plan Assessment/Plan ASSESSMENT AND REC'S: #. End-stage renal disease. --> patient's P.O.A listed on POLST Form in chart: Eb Gould has REFUSED HEMODIALYSIS For Patient. --> hgb 10-->9.2->9.6->9.7 --> monitor for any bleeding #. Intermittent Noncompliance --> seen by psych for psychosis and dementia behavior/agitated --> Continue to encourage overall compliance especially with daily laboratory blood draws. --> Spoke to niece who is listed P.O.A on POLST form in chart she has refused for Hemodialysis and does not agree for HD --> have dw renal in prior and also psych #. Anemia of chronic kidney disease. --> monitor Epogen as needed #. Hypercalcemia. --> cont to monitor #. Hypertension. --> elevated refusing medications. --> sbp goal <140 --> hydralazine given prn iv #. Bradycardia --> ekg reviewed, labs noted --> atropine at bedside prn #. Diabetes. #. AFIB --> cards as needed eval #. Dvt ppx lovenox sq The time the note was entered does not necessarily correspond to the time the patient was seen Subjective Constitutional: Denies: no symptoms, chills, fever, malaise, weakness, other HEENT: Denies: no symptoms, eye pain, blurred vision, tearing, double vision, ear pain, ear discharge, nose pain, nose congestion, throat pain, throat swelling, mouth pain, mouth swelling, other Cardiovascular: Denies: no symptoms, chest pain, edema, irregular heart rate, lightheadedness, palpitations, syncope, other Gastrointestinal/Abdominal: Denies: no symptoms, abdomen distended, abdominal pain, black stools, tarry stools, blood in stool, constipated, diarrhea, difficulty swallowing, nausea, poor appetite, poor fluid intake, rectal bleeding , vomiting, other Genitourinary: Denies: no symptoms, burning, discharge, frequency, flank pain, hematuria, incontinence, pain, urgency, other Neurologic/Psychiatric: Denies: no symptoms, anxiety, depressed, emotional problems, headache, numbness, paresthesia, pre-existing deficit, seizure, tingling, tremors, weakness, other Endocrine: Denies: no symptoms, excessive sweating, flushing, intolerance to cold, intolerance to heat, increased hunger, increased thirst, increased urine, unexplained weight gain, unexplained weight loss, other Hematologic/Lymphatic: Denies: no symptoms, anemia, easy bleeding, easy bruising, adenopathy, other Allergies: Coded Allergies: No Known Allergies (Unverified , 05/11/15) Subjective 01/04 on soft restraints, with fluids, no night sweats, meds converted to iv 01/05 ++agitated, no bleeding, dw rn, no night sweats, refusing meds 01/06 no major events, no night sweats, no bleeding Objective Objective Current Medications Medications (Trade) Dose Ordered Sig/Selene Route PRN Reason Start Time Stop Time Status Last Admin Dose Admin Acetaminophen/ Hydrocodone Bitart ([place] 7.5/325) 1 tab TWICE A DAY ORAL 01/04/20 09:00 01/11/20 08:59 01/06/20 17:08 Amlodipine Besylate (Norvasc) 5 mg DAILY ORAL 01/04/20 21:00 02/03/20 20:59 Benztropine Mesylate (Cogentin) 1 mg TWICE A DAY ORAL 01/04/20 09:00 02/03/20 08:59 01/06/20 18:15 Bisacodyl (Dulcolax) 10 mg DAILY PRN RECTAL Constipation 01/03/20 23:45 04/02/20 23:44 Ceftriaxone Sodium 1 gm/ Dextrose 55 ml @ 110 mls/hr Q24H IVPB 01/05/20 14:00 01/12/20 13:59 01/06/20 13:42 Dextrose (Dextrose 50%) 25 ml Q30M PRN IV Hypoglycemia 01/04/20 07:00 04/03/20 06:59 01/06/20 17:23 Dextrose (Dextrose 50%) 50 ml Q30M PRN IV Hypoglycemia 01/04/20 07:00 04/03/20 06:59 Dextrose/Sodium Chloride 1,000 ml @ 50 mls/hr Q20H IV 01/04/20 10:30 02/03/20 10:29 01/06/20 23:30 Divalproex Sodium (Depakote) 500 mg EVERY 12 HOURS ORAL 01/06/20 09:00 02/05/20 08:59 Docusate Sodium (Colace) 100 mg DAILY ORAL 01/04/20 09:00 02/03/20 08:59 Enoxaparin Sodium (Lovenox) 30 mg DAILY SUBQ 01/04/20 10:00 04/03/20 09:59 01/06/20 08:41 Furosemide (Lasix) 40 mg DAILY IV 01/05/20 09:00 02/04/20 08:59 01/07/20 08:58 Haloperidol Lactate (Haldol) 5 mg Q6H PRN IM Agitation 01/05/20 23:45 02/19/20 23:44 01/06/20 08:57 Insulin Aspart (NovoLOG) BEFORE MEALS AND HS SUBQ 01/04/20 11:30 04/03/20 11:29 Lactobacillus Acidophilus (Culturelle) 1 tab THREE TIMES A DAY ORAL 01/04/20 09:00 04/03/20 08:59 01/06/20 17:07 Quetiapine Fumarate (SEROqueL) 50 mg Q12HR ORAL 01/04/20 14:25 02/18/20 14:24 Last 24 Hour Vital Signs Date Time Temp Pulse Resp B/P (MAP) Pulse Ox O2 Delivery O2 Flow Rate FiO2 01/07/20 09:00 Room Air 01/07/20 09:00 86 153/68 01/07/20 08:00 97.5 86 16 153/68 (96) 94 01/07/20 04:00 98.9 86 20 150/78 (102) 95 01/06/20 23:49 98.7 86 20 130/69 (89) 95 01/06/20 21:00 98.9 86 20 156/74 (101) 95 01/06/20 21:00 Room Air 01/06/20 17:40 97.7 01/06/20 16:00 97.7 20 122/63 (82) 99 01/06/20 12:00 98.1 19 157/74 (101) 95 01/06/20 09:00 Room Air 01/06/20 08:00 97.8 102 17 96/69 (78) 95 01/06/20 04:00 97.3 90 20 135/69 (91) 95 01/06/20 00:00 98.0 88 20 120/68 (85) 96 01/05/20 21:00 Room Air 01/05/20 20:00 97.3 83 20 127/67 (87) 97 01/05/20 16:00 97.7 90 21 100/70 (80) 97 Intake and Output 01/06/20 01/07/20 19:00 07:00 Intake Total 500 ml 500 ml Balance 500 ml 500 ml IV Total 300 ml 500 ml Other 200 ml # Voids 2 3 # Bowel Movements 2 Labs Test 01/05/20 05:49 01/05/20 11:57 01/06/20 04:56 01/07/20 05:40 POC Whole Blood Glucose 82 MG/DL (74-106) White Blood Count 8.3 K/UL (4.8-10.8) 7.5 K/UL (4.8-10.8) Red Blood Count 3.60 M/UL (4.20-5.40) 3.59 M/UL (4.20-5.40) Hemoglobin 9.6 G/DL (12.0-16.0) 9.7 G/DL (12.0-16.0) Hematocrit 33.9 % (37.0-47.0) 34.3 % (37.0-47.0) Mean Corpuscular Volume 94 FL (80-99) 96 FL (80-99) Mean Corpuscular Hemoglobin 26.8 PG (27.0-31.0) 27.0 PG (27.0-31.0) Mean Corpuscular Hemoglobin Concent 28.4 G/DL (32.0-36.0) 28.3 G/DL (32.0-36.0) Red Cell Distribution Width 15.7 % (11.6-14.8) 16.6 % (11.6-14.8) Platelet Count 161 K/UL (150-450) 159 K/UL (150-450) Mean Platelet Volume 8.1 FL (6.5-10.1) 8.1 FL (6.5-10.1) Neutrophils (%) (Auto) 67.1 % (45.0-75.0) 79.2 % (45.0-75.0) Lymphocytes (%) (Auto) 21.4 % (20.0-45.0) 13.0 % (20.0-45.0) Monocytes (%) (Auto) 7.6 % (1.0-10.0) 6.4 % (1.0-10.0) Eosinophils (%) (Auto) 3.5 % (0.0-3.0) 1.1 % (0.0-3.0) Basophils (%) (Auto) 0.4 % (0.0-2.0) 0.2 % (0.0-2.0) Sodium Level 152 MMOL/L (136-145) 153 MMOL/L (136-145) Potassium Level 4.2 MMOL/L (3.5-5.1) 3.9 MMOL/L (3.5-5.1) Chloride Level 115 MMOL/L (98-107) 116 MMOL/L (98-107) Carbon Dioxide Level 23 MMOL/L (21-32) 24 MMOL/L (21-32) Anion Gap 15 mmol/L (5-15) 13 mmol/L (5-15) Blood Urea Nitrogen 65 mg/dL (7-18) 58 mg/dL (7-18) Creatinine 5.5 MG/DL (0.55-1.30) 5.5 MG/DL (0.55-1.30) Estimat Glomerular Filtration Rate 9.0 mL/min (>60) 9.0 mL/min (>60) Glucose Level 93 MG/DL (74-106) 84 MG/DL (74-106) Calcium Level 9.9 MG/DL (8.5-10.1) 9.6 MG/DL (8.5-10.1) Height (Feet): 5 Height (Inches): 1.00 Weight (Pounds): 138 Objective Physical Exam: Vitals: reviewed General: NAD HEENT: nc, at Neck: supple Chest: clear breath sounds bilaterally Cardiovascular: RRR, no s3, s4 Abdomen: soft, nontender, nd Extremities: no cce, normal range of motion Neuro: alert and oriented Star Toth MD Jan 07, 2020 12:07
[2020-01-07] MEDS: cefTRIAXone 1 GM in D5W 55 ML IVPB SCH (14:00)
--- NOTE | 2020-01-07 23:28 | Psych Consult Progress Note ---
Psychiatry Progress Note Psychiatry Progress Note Subjective the pt is responding to internal stimuli. the pt has uti now. the pt refusing meds lacks capacity to refuses meds the pt is kicking staFF Neurological/Psychiatric: Denies: no symptoms, anxiety, depressed, emotional problems, headache, numbness, paresthesia, pre-existing deficit, seizure, tingling, tremors, weakness, other Allergies: Coded Allergies: No Known Allergies (Unverified , 05/11/15) Objective Data Height (Feet): 5 Height (Inches): 1.00 Weight (Pounds): 138 General Appearance: alert, confused Additional Comments: Alert and oriented to times, self, and place. Mood is agitated. Affect is flat. Thought process is disorganized. Thought content, positive for auditory hallucination. Cognition is impaired. Insight and judgment is impaired. Assessment/Plan [place] I: ASSESSMENT: AXIS I: 1. Dementia with behavioral disturbance. 2. Schizophrenia. AXIS II: Deferred. AXIS III: 1. Abnormal labs. 2. Hypertension. 3. Diabetes mellitus. AXIS IV: Low. AXIS V: 20. PLAN: 1. We will start the patient on Seroquel, Haldol IM. 2. Increase the Depakote. 3. Continue bilateral soft restraints. 4. haldol dec Status: stable, progressing Status Narrative ASSESSMENT: AXIS I: 1. Dementia with behavioral disturbance. 2. Schizophrenia. AXIS II: Deferred. AXIS III: 1. Abnormal labs. 2. Hypertension. 3. Diabetes mellitus. AXIS IV: Low. AXIS V: 20. PLAN: 1. We will start the patient on Seroquel, Haldol IM. 2. Increase the Depakote. 3. Continue bilateral soft restraints. 4. haldol dec Assessment/Plan: ASSESSMENT: AXIS I: 1. Dementia with behavioral disturbance. 2. Schizophrenia. AXIS II: Deferred. AXIS III: 1. Abnormal labs. 2. Hypertension. 3. Diabetes mellitus. AXIS IV: Low. AXIS V: 20. PLAN: 1. We will start the patient on Seroquel, Haldol IM. 2. Increase the Depakote. 3. Continue bilateral soft restraints. 4. haldol dec Britney Pearl MD Jan 07, 2020 23:28
--- NOTE | 2020-01-09 16:03 | Discharge Summary ---
Discharge Summary Discharge Summary _ DATE OF ADMISSION: 01/03/2020 DATE OF DISCHARGE: 01/07/2020 DISCHARGED BY: Dr. Bravo Martins CONSULTANTS: Dr. Constance Toth [facility] COURSE: Patient is an 85-year-old female, who was brought into ED via EMS from [facility]. Patient has history of psychiatric disorder and has been more agitated and combative than usual. Patient was refusing to take her medications. She has medical history of osteoporosis, kidney failure, seizure disorder and weakness. Upon arrival to ED, patient was screaming and yelling. There was no reported fever or chills. No signs of distress. She was given Haldol for agitation. Blood work did not show any leukocytosis. Hemoglobin and hematocrit were stable. BUN was elevated to 72 and creatinine is 1.9. Urinalysis showed 3+ leukocyte esterase, negative nitrite, too numerous to count urine RBC and 20-30 urine WBC. Urine toxicology screen negative. Serum alcohol, acetaminophen and salicylate normal. Patient was admitted for encephalopathy. Patient has underlying psychiatric disorder and has dementia. Patient has end-stage renal disease. Patient's POA refused hemodialysis for patient. Patient has evidence of anemia and was given Epogen. She was given hydralazine IV as needed elevated blood pressure. Patient was easily agitated. She was placed on bilateral soft wrist restraints for safety. Patient was diagnosed with dementia with behavioral disturbance Haldol was discontinued. She was started on Seroquel. Depakote was increased. Patient was refusing medications. Patient insight and judgment impaired. Patient lacks the capacity to refuse meds. Urine culture showed growth of Proteus mirabilis. She was given ceftriaxone. Patient was eventually discharged back to assisted. To complete 2 more days of IV antibiotics. FINAL DIAGNOSES: Dementia with behavioral disturbance Schizophrenia Hypertension Diabetes mellitus End-stage renal disease, refused hemodialysis Intermittent noncompliance Anemia of chronic kidney disease Acute encephalopathy Acute kidney injury on CKD Osteoporosis Seizure disorder SNF resident DISPOSITION: Patient was discharged to SNF. DISCHARGE MEDICATIONS: Refer to Discharge Medication List. I have been assigned to complete a discharge summary on this account, I was not involved with the patient's management.--NUNU Bowser Jacqueline Robles NP Jan 09, 2020 16:03
== END 2020-01-07 17:06 | DRG 70 ==
LOC: EDBD 18:21 → EMR 18:45 → 2E 19:10 → EDBEDREQSVC 19:51 → EDBEDREQ 20:36 → 4E 01-05 14:24
DX: G93.41 Metabolic encephalopathy (principal); N18.6 End stage renal disease; N39.0 Urinary tract infection, site not specified; E46 Unspecified protein-calorie malnutrition; I12.0 Hypertensive chronic kidney disease with stage 5 chronic kidney disease or end stage renal disease; F03.91 Unspecified dementia, unspecified severity, with behavioral disturbance; R62.7 Adult failure to thrive; Z68.26 Body mass index [BMI] 26.0-26.9, adult; Z91.19 Patient's noncompliance with other medical treatment and regimen; D63.1 Anemia in chronic kidney disease; E83.52 Hypercalcemia; R00.1 Bradycardia, unspecified; E11.22 Type 2 diabetes mellitus with diabetic chronic kidney disease; I48.91 Unspecified atrial fibrillation; M81.0 Age-related osteoporosis without current pathological fracture; F20.9 Schizophrenia, unspecified; G40.909 Epilepsy, unspecified, not intractable, without status epilepticus; D64.9 Anemia, unspecified; B96.4 Proteus (mirabilis) (morganii) as the cause of diseases classified elsewhere
CPT/HCPCS: 36415; 80048; 80053; 80307; 81003; 82962; 85025; 87081; 87086; 87181; 96361; 96365; 96372; 97803; 99285; G0480; J1815; J7030